=== PATIENT | female | born 1990 | race Caucasian/White ===

== ENCOUNTER 2020-06-19 14:35 | Outpatient (REF) | payer OTHER, SELFPAY ==
[2020-06-19 14:54] LABS: COVID-19 Test Negative (Negative)
== END 2020-06-19 14:36 | disposition home or self-care (01) ==
LOC: HO.EMPCOV 14:35
PROVIDERS: PCP Internal Medicine; Visit Provider Internal Medicine
DX: Z20.822 Contact with and (suspected) exposure to COVID-19 (principal)
CPT/HCPCS: 36415; 87635; C9803

== ENCOUNTER 2020-06-21 10:23 | Outpatient (REF) | payer OTHER, SELFPAY ==
[2020-06-21 10:53] LABS: COVID-19 Test Negative (Negative)
== END 2020-06-21 10:24 | disposition home or self-care (01) ==
LOC: HO.EMPCOV 10:23
PROVIDERS: Visit Provider Internal Medicine
DX: Z20.822 Contact with and (suspected) exposure to COVID-19 (principal)
CPT/HCPCS: 36415; 87635; C9803

== ENCOUNTER 2020-07-04 16:00 | Outpatient (REF) | payer OTHER, MEDICAID, SELFPAY | END 2020-07-04 16:01 | disposition home or self-care (01) | LOC: HO.LNP 16:00 | PROVIDERS: Visit Provider Internal Medicine | DX: J00 Acute nasopharyngitis [common cold] (principal) | CPT/HCPCS: 87071; 87880 ==

== ENCOUNTER 2021-02-05 15:07 | Outpatient (REF) | payer OTHER, MEDICAID, SELFPAY ==
[2021-02-06 09:24] LABS: CT PCR NOT DETECTED (Not Detect.); NG PCR NOT DETECTED (Not Detect.)
== END 2021-02-05 15:08 | disposition home or self-care (01) ==
LOC: HO.LAB 15:07
PROVIDERS: Visit Provider Advanced Practice Midwife
DX: Z01.419 Encounter for gynecological examination (general) (routine) without abnormal findings (principal); Z11.3 Encounter for screening for infections with a predominantly sexual mode of transmission; Z20.2 Contact with and (suspected) exposure to infections with a predominantly sexual mode of transmission; G43.009 Migraine without aura, not intractable, without status migrainosus
CPT/HCPCS: 87491; 87591

== ENCOUNTER → 2021-04-24 14:58 | Outpatient (BNVA) | payer OTHER, MEDICAID, SELFPAY | PROVIDERS: Visit Provider Advanced Practice Midwife ==

== ENCOUNTER 2021-08-09 12:22 | Emergency (ER) | payer OTHER, MEDICAID, SELFPAY ==
--- NOTE | ~2021-08-09 | US_ITS ---
EXAMINATION: US ABDOMEN LIMITED CLINICAL INFORMATION: Right upper quadrant, epigastric pain.. COMPARISON: CT abdomen 05/17/2014. Renal ultrasound 07/10/2017.. TECHNIQUE: Real-time imaging of the right upper quadrant abdominal viscera. FINDINGS: PANCREAS: Normal. LIVER: Normal. The liver is normal in size. The liver contour is normal. Parenchymal echogenicity is normal. No focal hepatic lesion. There is no intrahepatic biliary duct dilatation seen. GALLBLADDER: Normal. The gallbladder is physiologically distended without evidence of stones, sludge, polyps, wall thickening or pericholecystic fluid. COMMON BILE DUCT: Normal in caliber measuring 0.5 cm in diameter. RIGHT KIDNEY: Normal. Mild caliectasis/pelviectasis. No renal calculi or focal parenchymal lesions. The kidney measures 9.6 cm in maximum dimension. FREE FLUID: None. US/US abdomen limited IMPRESSION: No evidence of gallstones. No sonographic findings suggest acute cholecystitis. Minimal right renal caliectasis/pelviectasis. No calculi.
[2021-08-09 13:14] VITALS: BP 112/75; PULSE 79; RESP 18; TEMP 36.7; O2SAT 99; BMI 22.0
--- NOTE | 2021-08-09 13:42 | ED_ITS ---
HPI - Abdominal Pain General Chief Complaint: Abdominal Pain Stated Complaint: sharp abd pain Time Seen by Provider: 08/09/21 13:27 Source: patient Mode of arrival: ambulatory History of Present Illness HPI narrative: 31-year-old female with past medical history renal stones s/p hernia surgery, presenting to the ED complaining of worsening intermittent epigastric abdominal pain x a few days with associated nausea. Admits has been taking a lot of Motrin lately & pain started afterwards not sure if related to the Motrin. Denies fever, chills, vomiting, diarrhea, dysuria/hematuria MD elicited complaint: abdominal pain Pertinent past history: gastritis Onset (ago): day(s) Related Data Previous Rx's Medication Instructions Recorded norelgestromin 150 mcg-e.estradiol 1 patch TRANSDERMAL QWEEK 28 Days 02/05/21 35 mcg/24 hr weekly transderm patch #12 ea fluconazole 150 mg tablet 150 mg PO Q3D #2 tab 04/24/21 miconazole nitrate 2 % vaginal 1 appful VAGINAL BEDTIME 7 Days 04/24/21 cream (Miconazole-7) #45 g aluminum-mag hydroxide-simethicone 5 ml PO 5XD PRN #30 ml 08/09/21 200 mg-200 mg-20 mg/5 mL oral susp (Maalox Advanced) famotidine 20 mg tablet (Pepcid) 20 mg PO DAILY #14 tab 08/09/21 lidocaine HCl 2 % mucosal solution 5 ml MUCOUS MEMBRANE TID PRN #100 08/09/21 (Lidocaine Viscous) ml Allergies Allergy/AdvReac Type Severity Reaction Status Date / Time cat dander [CATS] Allergy Mild ITCHING Verified 08/09/21 13:18 codeine [CODEINE] AdvReac Unknown NAUSEA Verified 08/09/21 13:18 Codeine AdvReac Unknown nausea and Uncoded 08/09/21 13:18 vomiting Review of Systems Review of Systems Constitutional: No Fever, No Chills, No Fatigue, No Malaise ENT/Mouth: No Ear Pain, No sore throat, No Rhinorrhea, No Swallowing Difficulty Eyes: No Eye Pain, No Swelling, No Redness Cardiovascular: No Chest Pain, No SOB, No Palpitations Respiratory: No Cough, No Sputum, No Dyspnea Gastrointestinal: + Nausea, No Vomiting, No Diarrhea, No Constipation, + Abdominal pain, No Hematochezia, No Melena Genitourinary: No irregular bleeding, No Dysuria, No Urinary Frequency, No Hematuria, No Urinary Incontinence, No Urgency, No Flank Pain, No Urinary Flow Changes Musculoskeletal: No joint pain, No Myalgias, No Joint Swelling Skin: No Skin Lesions, No rash Neuro: No Weakness, No Numbness, No Dizziness, No Headache Yes all other systems are reviewed and are negative [facility] Past Medical History Attestation statement: The following information was validated with the patient. Medical History Adopted History of abnormal cervical Pap smear Kidney stone Migraine without aura No active medical problems Surgical History H/O LEEP History of hernia surgery Social History Social History Household Members: Children Housing: House Alcohol intake: current Patient Tobacco Use Status: Never used Tobacco Advance Directives: No Advance Directives Information Provided: No Patient : No Sexual orientation: Straight/Heterosexual Gender identity: Female Physical Exam ED Vital Signs: Vital Signs - 24 hr 08/09/21 13:14 08/09/21 15:08 Temperature 98.1 F 98.4 F Pulse Rate 79 68 Respiratory Rate 18 12 Blood Pressure 112/75 113/63 Pulse Oximetry 99 100 BMI result Body Mass Index 22.0 Const General: cooperative, healthy appearing and no acute distress Orientation/consciousness: patient oriented x3 Limitations: no limitations HENMT Head: Yes normal to inspection Ears: hearing grossly normal bilaterally General nose exam: Normal external nose present Face and sinus: Yes normal facial exam Eyes General: appearance normal, both eyes and all related structures EOM: EOMs intact bilaterally Neck Neck: Yes normal visual inspection and Yes no meningeal signs Resp Effort & Inspection: normal respiratory effort and no respiratory distress Auscultation: clear to auscultation bilaterally Cardio Rate: regular rate Heart sounds: S1 normal heart sound present and S2 normal heart sound present GI Inspection: Yes normal to inspection Palpation (GI): Soft to palpation, Tenderness to palpation present (GI) in the epigastrum and in the RUQ, no guarding and not rigid General: Yes no CVA tenderness Back/Spine/Pelvis Back: no CVA tenderness Skin Rashes: no rashes Wounds: no wounds Neuro General: patient oriented x3 and no meningeal signs Gait exam (Neuro): Normal gait present Extrem General: Yes normal to inspection Course Course Course Narrative: US abdomen limited IMPRESSION: No evidence of gallstones. No sonographic findings suggest acute cholecystitis. ? Minimal right renal caliectasis/pelviectasis. No calculi. -1444--mild leukocytosis of 11.4. Labs otherwise unremarkable. UA with RBCs, not infected > On re-evaluation pt reports sx improvement after medications. Plan to DC home with GI/PCP follow-up, Dr. Veronica in agreement with plan. Discussed worrisome signs and symptoms and strict return precautions. She verbalized understanding and feel safe for discharge home MDM - Abdominal Pain MDM Narrative Medical decision making narrative: 31-year-old female with past medical history renal stones s/p hernia surgery, presenting to the ED complaining of worsening intermittent epigastric abdominal pain x a few days with associated nausea. On exam vital signs stable, NAD, abdomen soft with epigastric/RUQ tenderness to palpation, no rebound or guarding, no CVA tenderness. Concern for gastritis/esophagitis vs pancreatitis vs cholecystitis/lithiasis. Unlikely renal stone/colic, UTI, appendicitis or diverticulitis Plan: Labs, UA, abdomen ultrasound, symptomatic treatment, re-evaluate Differential Diagnosis Differential diagnosis: Likely abdominal pain, gastritis and pancreatitis Medical Records Attestation: I reviewed the patient's medical records. Lab Data Attestation: I reviewed the patient's lab results. Result diagrams: 08/09/21 14:12 08/09/21 14:31 Labs: Lab Results 08/09/21 08/09/21 08/09/21 Range/Units 14:12 14:12 14:12 WBC 11.4 H (4.8-10.8) X10*3/uL RBC 4.22 (4.20-5.50) X10*6/uL Hgb 13.4 (12.0-16.0) g/dl Hct 40.0 (37.0-47.0) % MCV 94.8 (80.0-98.0) fL MCH 31.8 (27.0-33.0) pg MCHC 33.5 (31.0-35.0) g/dl RDW 13.2 (11.0-16.0) % Plt Count 421 H (160-400) X10*3/uL MPV 8.9 L (9.4-12.3) fL Immature Gran % (Auto) 0.4 (0.0-0.4) % Neut % (Auto) 69.8 (45-73) % Lymph % (Auto) 23.6 (20-40) % [place] % (Auto) 4.7 (2-11) % Eos % (Auto) 1.1 (0-4) % Baso % (Auto) 0.4 (0-2) % Lymph # (Auto) 2.7 (1.2-4.9) X10*3/uL [place] # (Auto) 0.5 (0.1-1.2) X10*3/uL Eos # (Auto) 0.1 (0.0-0.4) X10*3/uL Baso # (Auto) 0.0 (0.0-0.2) X10*3/uL Abs Immat Gran (auto) 0.04 H (0.00-0.03) X10*3/uL Absolute Neuts (auto) 8.0 (2.0-8.3) x10*3/uL Absolute Nucleated RBC 0.000 (0.0-0.012) X10*3/uL Nucleated RBC % (auto) 0.0 (0.0-0.2) /100WBC Sodium (135-145) mmol/L Potassium (3.3-5.1) mmol/L Chloride (96-108) mmol/L Carbon Dioxide (22-29) mmol/L Anion Gap (12-20) BUN (9-16) mg/dL Creatinine (0.5-1.4) mg/dL Estim Creat Clear Calc Estimated GFR Random Glucose (60-115) mg/dL Calcium (8.4-10.2) mg/dL Magnesium (1.6-2.6) mg/dL Total Bilirubin (0.0-1.0) mg/dL Direct Bilirubin (0.0-0.5) mg/dL AST (5-31) U/L ALT (0-31) U/L Alkaline Phosphatase (39-117) U/L Total Protein (6.5-8.0) g/dL Albumin (3.5-5.0) g/dL Lipase (8-78) U/L Urine Color YELLOW Urine Appearance CLEAR Urine pH 5.5 (5.0-8.0) Ur Specific [place] >= 1.030 H (1.005-1.025) Urine Protein NEG (NEG-TRACE) MG/DL Urine Glucose (UA) NEG (NEG) MG/DL Urine Ketones NEG (NEG) MG/DL Urine Blood 2+ H (NEG) Urine Nitrite NEG (NEG) Ur Leukocyte Esterase NEG (NEG) Urine RBC 5-9 H (0) /HPF Urine WBC 0-2 (0-4) /HPF Ur Squamous Epith Cells 1+ /LPF Urine Bacteria TRACE /LPF Urine Mucus 1+ /LPF Urine Test NEGATIVE (NEGATIVE) 08/09/21 Range/Units 14:31 WBC (4.8-10.8) X10*3/uL RBC (4.20-5.50) X10*6/uL Hgb (12.0-16.0) g/dl Hct (37.0-47.0) % MCV (80.0-98.0) fL MCH (27.0-33.0) pg MCHC (31.0-35.0) g/dl RDW (11.0-16.0) % Plt Count (160-400) X10*3/uL MPV (9.4-12.3) fL Immature Gran % (Auto) (0.0-0.4) % Neut % (Auto) (45-73) % Lymph % (Auto) (20-40) % [place] % (Auto) (2-11) % Eos % (Auto) (0-4) % Baso % (Auto) (0-2) % Lymph # (Auto) (1.2-4.9) X10*3/uL [place] # (Auto) (0.1-1.2) X10*3/uL Eos # (Auto) (0.0-0.4) X10*3/uL Baso # (Auto) (0.0-0.2) X10*3/uL Abs Immat Gran (auto) (0.00-0.03) X10*3/uL Absolute Neuts (auto) (2.0-8.3) x10*3/uL Absolute Nucleated RBC (0.0-0.012) X10*3/uL Nucleated RBC % (auto) (0.0-0.2) /100WBC Sodium 139 (135-145) mmol/L Potassium 3.9 (3.3-5.1) mmol/L Chloride 107 (96-108) mmol/L Carbon Dioxide 24 (22-29) mmol/L Anion Gap 12 (12-20) BUN 9 (9-16) mg/dL Creatinine 0.72 (0.5-1.4) mg/dL Estim Creat Clear Calc 68.3 Estimated GFR > 60 Random Glucose 87 (60-115) mg/dL Calcium 9.9 (8.4-10.2) mg/dL Magnesium 2.0 (1.6-2.6) mg/dL Total Bilirubin 0.3 (0.0-1.0) mg/dL Direct Bilirubin 0.2 (0.0-0.5) mg/dL AST 16 (5-31) U/L ALT 9 (0-31) U/L Alkaline Phosphatase 44 (39-117) U/L Total Protein 7.3 (6.5-8.0) g/dL Albumin 4.1 (3.5-5.0) g/dL Lipase 26 (8-78) U/L Urine Color Urine Appearance Urine pH (5.0-8.0) Ur Specific [place] (1.005-1.025) Urine Protein (NEG-TRACE) MG/DL Urine Glucose (UA) (NEG) MG/DL Urine Ketones (NEG) MG/DL Urine Blood (NEG) Urine Nitrite (NEG) Ur Leukocyte Esterase (NEG) Urine RBC (0) /HPF Urine WBC (0-4) /HPF Ur Squamous Epith Cells /LPF Urine Bacteria /LPF Urine Mucus /LPF Urine Test (NEGATIVE) Discharge Plan Discharge Clinical Impression: Abdominal pain Qualifiers: Abdominal location: epigastric Qualified Code(s): R10.13 - Epigastric pain Patient Disposition: Home, Self-Care Instructions: Abdominal Pain (ED) Additional Instructions: Your blood work and ultrasound were reassuring today in the ED Please follow-up with her doctor and search analyst. Call to make an appointment Pepcid and Maalox will help with acid reduction. Viscous lidocaine will help numb the pain you are having These avoid spicy food, sweets, caffeine, and chocolate as will exacerbate her symptoms If her symptoms persist or worsen, pain becomes unbearable, you are vomiting blood, having bloody or black stool, are unable to eat or drink please return to the ED Prescriptions: New famotidine [Pepcid] 20 mg tablet 20 mg PO DAILY Qty: 14 0RF alum-mag hydroxide-simeth [Maalox Advanced] 200-200-20 mg/5 mL suspension 5 ml PO 5XD PRN (Reason: dyspepsia) Qty: 30 0RF Rx Instructions: administer between meals and at bedtime lidocaine HCl [Lidocaine Viscous] 2 % solution 5 ml mucous membrane TID PRN (Reason: pain) Qty: 100 0RF No Action norelgestromin-ethin.estradiol 150-35 mcg/24 hr patch weekly 1 patch transdermal QWEEK 28 Days Qty: 12 4RF Rx Instructions: apply once weekly, will use on a continuous cycle, no placebo week off fluconazole 150 mg tablet 150 mg PO Q3D Qty: 2 3RF Rx Instructions: may repeat second dose 72 hrs after first dose if symptoms persist miconazole nitrate [Miconazole-7] 2 % cream 1 appful vaginal BEDTIME 7 Days Qty: 45 3RF Referrals: Abundio Worthington [Physician] - 1 week Dionicio Vance MD [Primary Care Provider] - 2 days
[2021-08-09 14:19] LABS: MANUAL DIFF FLAG NO
[2021-08-09 14:21] LABS: Appearance Urine CLEAR; Color Urine YELLOW; Glucose Urine UA NEG (NEG); Leukocyte Esterase Urine NEG (NEG); Nitrite Urine NEG (NEG); PH 5.5 (5.0-8.0); Specific Gravity - Urine >= 1.030 (1.005-1.025); UACC Culture Trigger NO; Urine Blood 2+ (NEG); Urine Ketones NEG (NEG); Urine Protein NEG (NEG-TRACE)
[2021-08-09] MEDS: Famotidine/PF 20 MG/2 ML VIAL IVPUSH (14:22)
[2021-08-09] MEDS: Lidocaine HCl Viscous 2 % 15 ML SOLUTION MUCOUS MEM (14:22)
[2021-08-09] MEDS: Magnesium Hydrox/Alum Hydrox 30 ML ORAL.SUSP PO (14:22)
[2021-08-09] MEDS: ondansetron HCL 4 MG/2 ML VIAL IVPUSH (14:22)
[2021-08-09] MEDS: 0.9 % Sodium Chloride 1,000 ML 999 ML IV (14:22)
[2021-08-09 14:23] LABS: UPreg QC Valid YES; Urine Pregnancy NEGATIVE (NEGATIVE)
[2021-08-09 14:26] LABS: Basophils Percent Auto 0.4 % (0-2); Eosinophils Absolute Auto 0.1 X10*3/uL (0.0-0.4); Eosinophils Percent Auto 1.1 % (0-4); Hemoglobin 13.4 g/dl (12.0-16.0); Imm Gran Abs Auto 0.04 X10*3/uL (0.00-0.03); Imm Gran Pct Auto 0.4 % (0.0-0.4); Lymphocytes Absolute Auto 2.7 X10*3/uL (1.2-4.9); Lymphocytes Percent Auto 23.6 % (20-40); Mean Corpuscular HGB Conc 33.5 g/dl (31.0-35.0); Mean Corpuscular Hemoglobin 31.8 pg (27.0-33.0); Mean Corpuscular Volume 94.8 fL (80.0-98.0); Mean Platelet Volume 8.9 fL (9.4-12.3); Monocytes Absolute Auto 0.5 X10*3/uL (0.1-1.2); Monocytes Percent Auto 4.7 % (2-11); Neutrophils Percent Auto 69.8 % (45-73); Platelet Count 421 X10*3/uL (160-400); Red Blood Count 4.22 X10*6/uL (4.20-5.50); Red Cell Distribution Width 13.2 % (11.0-16.0); White Blood Count 11.4 X10*3/uL (4.8-10.8)
[2021-08-09 14:29] LABS: WBC Urine 0-2 /HPF (0-4)
[2021-08-09 14:30] LABS: Bacteria Urine TRACE /LPF; Mucus Urine 1+ /LPF; Squamous Epithelial Cell Urine 1+ /LPF
[2021-08-09 14:52] LABS: Alanine Aminotransferase 9 U/L (0-31); Albumin Level 4.1 g/dL (3.5-5.0); Alkaline Phosphatase 44 U/L (39-117); Anion Gap 12 (12-20); Aspartate Amino Transferase 16 U/L (5-31); Bilirubin Direct 0.2 mg/dL (0.0-0.5); Bilirubin Total 0.3 mg/dL (0.0-1.0); Blood Urea Nitrogen 9 mg/dL (9-16); Calcium 9.9 mg/dL (8.4-10.2); Carbon Dioxide 24 mmol/L (22-29); Chloride 107 mmol/L (96-108); Creatinine Clr Calc Pharmacy 68.3; Estimated Glomerular Filt Rate > 60; Glucose Random 87 mg/dL (60-115); Lipase 26 U/L (8-78); Potassium 3.9 mmol/L (3.3-5.1); Sodium 139 mmol/L (135-145); Total Protein 7.3 g/dL (6.5-8.0)
[2021-08-09 15:08] VITALS: BP 113/63; PULSE 68; RESP 12; TEMP 36.9; O2SAT 100
== END 2021-08-09 15:58 | disposition home or self-care (01) ==
PROVIDERS: Physician Assistant; Emergency Provider Emergency Medicine; PCP Internal Medicine
DX: K29.70 Gastritis, unspecified, without bleeding (principal); R10.13 Epigastric pain; Z79.899 Other long term (current) drug therapy
CPT/HCPCS: 36415; 76705; 80048; 80076; 81001; 81025; 83690; 83735; 85025; 96360; 96361; 99283; 99284; J2405

== ENCOUNTER 2022-02-25 16:21 | Outpatient (REF) | payer OTHER, SELFPAY ==
[2022-02-26 15:24] LABS: CT PCR NOT DETECTED (Not Detect.); NG PCR NOT DETECTED (Not Detect.)
== END 2022-02-25 16:22 | disposition home or self-care (01) ==
LOC: HO.LNP 16:21
PROVIDERS: Visit Provider Advanced Practice Midwife
DX: Z11.3 Encounter for screening for infections with a predominantly sexual mode of transmission (principal)
CPT/HCPCS: 87491; 87591

== ENCOUNTER 2022-04-09 11:32 | Outpatient (REF) | payer OTHER, SELFPAY ==
[2022-04-09 13:39] LABS: MANUAL DIFF FLAG NO
[2022-04-09 13:43] LABS: Basophils Percent Auto 0.4 % (0-2); Eosinophils Absolute Auto 0.1 X10*3/uL (0.0-0.4); Eosinophils Percent Auto 1.4 % (0-4); Hematocrit 39.9 % (37.0-47.0); Hemoglobin 13.1 g/dl (12.0-16.0); Imm Gran Abs Auto 0.02 X10*3/uL (0.00-0.03); Imm Gran Pct Auto 0.3 % (0.0-0.4); Lymphocytes Absolute Auto 2.1 X10*3/uL (1.2-4.9); Lymphocytes Percent Auto 27.6 % (20-40); Mean Corpuscular HGB Conc 32.8 g/dl (31.0-35.0); Mean Corpuscular Volume 94.3 fL (80.0-98.0); Mean Platelet Volume 9.5 fL (9.4-12.3); Monocytes Absolute Auto 0.3 X10*3/uL (0.1-1.2); Monocytes Percent Auto 4.4 % (2-11); Neutrophils Absolute Auto 5.1 x10*3/uL (2.0-8.3); Neutrophils Percent Auto 65.9 % (45-73); Platelet Count 421 X10*3/uL (160-400); Red Blood Count 4.23 X10*6/uL (4.20-5.50); Red Cell Distribution Width 13.1 % (11.0-16.0); White Blood Count 7.7 X10*3/uL (4.8-10.8)
[2022-04-09 14:01] LABS: Alanine Aminotransferase 11 U/L (0-31); Albumin Level 4.4 g/dL (3.5-5.0); Alkaline Phosphatase 49 U/L (39-117); Anion Gap 17 (12-20); Aspartate Amino Transferase 17 U/L (5-31); Bilirubin Total 0.5 mg/dL (0.0-1.0); Blood Urea Nitrogen 11 mg/dL (9-16); C Reactive Protein 1.22 mg/dL (< or = 0.50); Calcium 9.4 mg/dL (8.4-10.2); Carbon Dioxide 22 mmol/L (22-29); Chloride 104 mmol/L (96-108); Estimated Glomerular Filt Rate > 60; Glucose Random 76 mg/dL (60-115); Potassium 4.2 mmol/L (3.3-5.1); Sodium 139 mmol/L (135-145); Total Protein 7.7 g/dL (6.5-8.0)
[2022-04-09 14:34] LABS: Syphilis Screen Nonreactive (Nonreactive)
[2022-04-09 15:39] LABS: CT PCR NOT DETECTED (Not Detect.); NG PCR NOT DETECTED (Not Detect.)
[2022-04-12 23:10] LABS: Lyme Blot 1.66 index
[2022-04-14 08:44] LABS: Lyme Abs Screen POSITIVE
[2022-04-14 08:48] LABS: 18 KD (IgG) Band NON-REACTIVE; 23 KD (IgG) Band NON-REACTIVE; 23 KD (IgM) Band REACTIVE; 28 KD (IgG) Band NON-REACTIVE; 30 KD (IgG) Band NON-REACTIVE; 39 KD (IgM) Band NON-REACTIVE; 39KD (IgG) Band NON-REACTIVE; 41 KD (IgM) Band NON-REACTIVE; 41KD (IgG) Band NON-REACTIVE; 45 KD (IgG) Band NON-REACTIVE; 58 KD (IgG) Band NON-REACTIVE; 66 KD (IgG) Band NON-REACTIVE; 93 KD (IgG) Band NON-REACTIVE; Lyme IgG Blot Interp NEGATIVE (NEGATIVE); Lyme IgM Blot Interp NEGATIVE (NEGATIVE)
== END 2022-04-09 11:33 | disposition home or self-care (01) ==
LOC: HO.10HDL 11:32
PROVIDERS: Visit Provider Internal Medicine
DX: Z11.3 Encounter for screening for infections with a predominantly sexual mode of transmission (principal); R21 Rash and other nonspecific skin eruption
CPT/HCPCS: 80053; 85025; 86140; 86617; 86618; 86780; 87491; 87591

== ENCOUNTER 2022-05-05 09:18 | Outpatient (REF) | payer OTHER, SELFPAY ==
[2022-05-05 11:06] LABS: C Reactive Protein 0.75 mg/dL (< or = 0.50)
[2022-05-07 06:04] LABS: Lyme Blot 1.61 index
[2022-05-10 08:26] LABS: Lyme Abs Screen POSITIVE
[2022-05-10 08:31] LABS: 18 KD (IgG) Band NON-REACTIVE; 23 KD (IgG) Band NON-REACTIVE; 23 KD (IgM) Band REACTIVE; 28 KD (IgG) Band NON-REACTIVE; 30 KD (IgG) Band NON-REACTIVE; 39 KD (IgM) Band NON-REACTIVE; 39KD (IgG) Band NON-REACTIVE; 41 KD (IgM) Band NON-REACTIVE; 41KD (IgG) Band REACTIVE; 45 KD (IgG) Band NON-REACTIVE; 58 KD (IgG) Band NON-REACTIVE; 66 KD (IgG) Band NON-REACTIVE; 93 KD (IgG) Band NON-REACTIVE; Lyme IgG Blot Interp NEGATIVE (NEGATIVE); Lyme IgM Blot Interp NEGATIVE (NEGATIVE)
== END 2022-05-05 09:19 | disposition home or self-care (01) ==
LOC: HO.10HDL 09:18
PROVIDERS: Visit Provider Internal Medicine
DX: T14.8XXA Other injury of unspecified body region, initial encounter (principal); W57.XXXA Bitten or stung by nonvenomous insect and other nonvenomous arthropods, initial encounter
CPT/HCPCS: 36415; 86140; 86617; 86618

== ENCOUNTER 2022-05-18 12:15 | Outpatient (REF) | payer OTHER, SELFPAY ==
[2022-05-18 14:28] LABS: MANUAL DIFF FLAG NO
[2022-05-18 14:35] LABS: Basophils Absolute Auto 0.1 X10*3/uL (0.0-0.2); Basophils Percent Auto 0.5 % (0-2); Eosinophils Absolute Auto 0.2 X10*3/uL (0.0-0.4); Eosinophils Percent Auto 2.4 % (0-4); Hematocrit 39.3 % (37.0-47.0); Hemoglobin 12.9 g/dl (12.0-16.0); Imm Gran Abs Auto 0.03 X10*3/uL (0.00-0.03); Imm Gran Pct Auto 0.3 % (0.0-0.4); Lymphocytes Absolute Auto 2.5 X10*3/uL (1.2-4.9); Lymphocytes Percent Auto 24.2 % (20-40); Mean Corpuscular HGB Conc 32.8 g/dl (31.0-35.0); Mean Corpuscular Hemoglobin 30.9 pg (27.0-33.0); Mean Platelet Volume 9.3 fL (9.4-12.3); Monocytes Absolute Auto 0.5 X10*3/uL (0.1-1.2); Monocytes Percent Auto 4.4 % (2-11); Neutrophils Percent Auto 68.2 % (45-73); Platelet Count 446 X10*3/uL (160-400); Red Blood Count 4.18 X10*6/uL (4.20-5.50); White Blood Count 10.2 X10*3/uL (4.8-10.8)
[2022-05-18 15:31] LABS: Folate 13.3 ng/mL (> or = 4.0); Vitamin B12 223 pg/mL (200-900)
[2022-05-18 16:16] LABS: Alanine Aminotransferase 10 U/L (0-31); Albumin Level 4.2 g/dL (3.5-5.0); Alkaline Phosphatase 49 U/L (39-117); Anion Gap 14 (12-20); Aspartate Amino Transferase 15 U/L (5-31); Bilirubin Total 0.2 mg/dL (0.0-1.0); Blood Urea Nitrogen 12 mg/dL (9-16); C Reactive Protein 0.92 mg/dL (< or = 0.50); Calcium 9.5 mg/dL (8.4-10.2); Carbon Dioxide 21 mmol/L (22-29); Chloride 108 mmol/L (96-108); Estimated Glomerular Filt Rate > 60; Free T4 (Free Thyroxine) 0.94 ng/dL (0.71-1.85); Glucose Random 82 mg/dL (60-115); Potassium 4.2 mmol/L (3.3-5.1); Rheumatoid Factor < 13.0 IU/mL (<15.0); Sodium 139 mmol/L (135-145); Thyroid Stimulating Hormone 0.61 uIU/mL (0.32-4.0); Total Protein 7.4 g/dL (6.5-8.0)
[2022-05-21 12:49] LABS: Anti Nuclear Antibody Screen NEGATIVE (NEGATIVE)
== END 2022-05-18 12:16 | disposition home or self-care (01) ==
LOC: HO.10HDL 12:15
PROVIDERS: Visit Provider Internal Medicine
DX: M79.10 Myalgia, unspecified site (principal); A69.20 Lyme disease, unspecified; R53.83 Other fatigue
CPT/HCPCS: 36415; 80053; 82550; 82607; 82746; 84439; 84443; 85025; 86038; 86039; 86140; 86431

== ENCOUNTER 2022-08-04 14:26 | Outpatient (REF) | payer OTHER, SELFPAY ==
--- NOTE | ~2022-08-04 | XR_ITS ---
EXAMINATION: XR SINUSES CLINICAL INFORMATION: Sinus pressure and headaches. COMPARISON: None TECHNIQUE: 3 views of the sinuses were obtained. FINDINGS: The paranasal sinuses are well-aerated and clear without air-fluid levels. The bony sinus lemus are intact. The mastoid air cells are well-aerated. XR/XR sinus min 3V IMPRESSION: Unremarkable sinus exam.
[2022-08-04 14:41] LABS: MANUAL DIFF FLAG NO
[2022-08-04 14:58] LABS: Basophils Percent Auto 0.4 % (0-2); Eosinophils Absolute Auto 0.2 X10*3/uL (0.0-0.4); Eosinophils Percent Auto 1.8 % (0-4); Hematocrit 40.4 % (37.0-47.0); Hemoglobin 13.2 g/dl (12.0-16.0); Imm Gran Abs Auto 0.04 X10*3/uL (0.00-0.03); Imm Gran Pct Auto 0.4 % (0.0-0.4); Lymphocytes Absolute Auto 2.7 X10*3/uL (1.2-4.9); Lymphocytes Percent Auto 23.6 % (20-40); Mean Corpuscular HGB Conc 32.7 g/dl (31.0-35.0); Mean Corpuscular Hemoglobin 30.7 pg (27.0-33.0); Mean Platelet Volume 8.6 fL (9.4-12.3); Monocytes Absolute Auto 0.6 X10*3/uL (0.1-1.2); Monocytes Percent Auto 5.5 % (2-11); Neutrophils Absolute Auto 7.8 x10*3/uL (2.0-8.3); Neutrophils Percent Auto 68.3 % (45-73); Platelet Count 415 X10*3/uL (160-400); Red Cell Distribution Width 13.2 % (11.0-16.0); White Blood Count 11.4 X10*3/uL (4.8-10.8)
[2022-08-04 15:52] LABS: Monotest Negative (Negative)
[2022-08-04 16:37] LABS: Alanine Aminotransferase 9 U/L (0-31); Albumin Level 4.2 g/dL (3.5-5.0); Alkaline Phosphatase 59 U/L (39-117); Anion Gap 12 (12-20); Aspartate Amino Transferase 16 U/L (5-31); Bilirubin Total 0.4 mg/dL (0.0-1.0); Blood Urea Nitrogen 12 mg/dL (9-16); C Reactive Protein 1.07 mg/dL (< or = 0.50); Calcium 9.3 mg/dL (8.4-10.2); Carbon Dioxide 25 mmol/L (22-29); Chloride 107 mmol/L (96-108); Estimated Glomerular Filt Rate > 60; Glucose Random 82 mg/dL (60-115); Potassium 4.3 mmol/L (3.3-5.1); Sodium 140 mmol/L (135-145); Total Protein 7.5 g/dL (6.5-8.0)
[2022-08-05 13:18] LABS: Thyroid Peroxidase Antibodies 1 IU/mL (<9)
== END 2022-08-04 14:27 | disposition home or self-care (01) ==
LOC: HO.XRAY 14:26
PROVIDERS: PCP Internal Medicine; Visit Provider Internal Medicine
DX: J34.89 Other specified disorders of nose and nasal sinuses (principal); R51.9 Headache, unspecified
CPT/HCPCS: 36415; 70220; 80053; 85025; 86140; 86308; 86376

== ENCOUNTER 2023-03-19 09:26 | Outpatient (AMB) | payer OTHER, MEDICAID, SELFPAY ==
--- NOTE | 2023-03-19 10:50 | AM.OFFWIN_ITS ---
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 Patient Tobacco Use Status: Never used Tobacco Allergies cat dander [CATS] Allergy (Mild, Verified 03/19/23 10:53) ITCHING codeine [CODEINE] Adverse Reaction (Unknown, Verified 03/19/23 10:53) NAUSEA Codeine Adverse Reaction (Unknown, Uncoded 03/19/23 10:53) nausea and vomiting Do you need a note to return to daycare/school/sports/work: No HPI HPI Comments History of Present Illness Details This is a 33-year-old female who presents to the office today for sick visit. Patient complaining of left-sided neck pain radiating into her left shoulder x6 days. Patient states she believe she slept wrong and that woke up with left-sided neck stiffness/pain radiating into her left shoulder. She has mild numbness/achiness of the left forearm. She denies any weakness of the hand. 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 Sexual orientation: Straight/Heterosexual Gender identity: Female Female Reproductive History Menstrual Age of Menarche: 11 Review of Systems Const All systems reviewed & are unremarkable except as noted in HPI and below Reports no additional complaints Eyes Reports no additional complaints ENT Reports no additional complaints Card Reports no additional complaints Resp Reports no additional complaints GI Reports no additional complaints Reports no additional complaints Musc Reports no additional complaints Skin/Breast Reports system reviewed and no additional complaints, except as documented Neuro Reports no additional complaints Psych Reports no additional complaints Endo Reports no additional complaints Toby/Lymph Reports no additional complaints Aller/Immun Reports no additional complaints Physical Exam Vital Signs: Last Vital Signs Pulse 72 03/19/23 10:54 BP 110/70 03/19/23 10:54 Pulse Ox 99 03/19/23 10:54 Oxygen Delivery Method Room Air 03/19/23 10:54 BMI result Body Mass Index 22.1 Const Other: Vital signs reviewed. Constitutional: Non-toxic appearing. No acute distress. Well-developed and well-nourished. HEENT: Normocephalic and atraumatic. Skin: Warm and dry. No rashes or lesions noted. Neck: Decreased range of motion of the neck with lateral rotation to the left and right. Tenderness to palpation of the left cervical paraspinal musculature with palpable muscle spasms of the left cervical paraspinal musculature and left trapezius muscle. No meningeal signs. Cardio: Regular rate. No lower extremity edema. No JVD. Pulmonary: No respiratory distress. No accessory muscle usage. Gastrointestinal: Soft, nontender, and nondistended in all 4 quadrants. Musculoskeletal: Normal range of motion in joints throughout the body other than the C-spine (see above) No deformity or other signs of injury. Neuro: Alert and oriented x4. Cranial nerves 2-12 grossly intact. No focal deficits appreciated. Psych: Normal mood and affect. Assessment & Plan Assessment & Plan (1) Cervical paraspinal muscle spasm: Code(s): M62.838 - Other muscle spasm Plan: This is a 33-year-old female presenting to the office complaining of left-sided neck pain/stiffness radiating into her left shoulder after sleeping wrong. On physical examination, patient has tenderness to palpation and palpable muscle spasm of the left cervical paraspinal musculature and left trapezius muscle. History and physical most consistent with a cervical paraspinal muscle spasm, no concern for meningitis given no meningeal signs, low suspicion for cervical radiculopathy. Offered the patient an x-ray of the cervical spine though I do not think it is a bony abnormality and patient declined at this time. Recommended symptomatic management including rest/activity modification, 5% lidocaine patches, heat to the area, PO ibuprofen 800mg three times daily, and PO cyclobenzaprine 10mg three times daily as needed for muscle spasms. Patient verbalized understanding and is agreeable with the plan. Medications: New cyclobenzaprine 10 mg PO TID PRN 30 tabs 0RF muscle spasm lidocaine 5% leave on most painful area for up to 12 hrs 1 patch topical DAILY 30 ea 0RF Coding Level of Care Code New Pt Level 3 (26917) Diagnoses Cervical paraspinal muscle spasm M62.838
[2023-03-19 10:54] VITALS: BP 110/70; PULSE 72; O2SAT 99; BMI 22.1
== END 2023-03-19 11:22 | disposition home or self-care (01) ==
PROVIDERS: PCP Internal Medicine; Visit Provider Physician Assistant Medical
DX: M62.838 Other muscle spasm (principal)
CPT/HCPCS: 99051; 99203

== ENCOUNTER 2023-11-17 14:29 | Outpatient (REF) | payer OTHER, SELFPAY ==
[2023-11-18 10:36] LABS: Bacterial Vaginosis PCR POSITIVE (Negative); Candida Group PCR NOT DETECTED (Not Detect); Candida glab krusei PCR NOT DETECTED (Not Detect); Trichomonas vaginalis PCR NOT DETECTED (Not Detect)
[2023-11-23 20:44] LABS: HPV mRNA E6/E7 rflx Not Detected (Not Detected)
== END 2023-11-17 14:30 | disposition home or self-care (01) ==
LOC: HO.LNP 14:29
PROVIDERS: PCP Internal Medicine; Visit Provider Advanced Practice Midwife
DX: Z12.4 Encounter for screening for malignant neoplasm of cervix (principal); N89.8 Other specified noninflammatory disorders of vagina
CPT/HCPCS: 0352U; 87624; 88142

== ENCOUNTER 2023-11-17 14:29 | Outpatient (AMB) | payer OTHER, SELFPAY ==
[2023-11-17 14:31] VITALS: BP 106/62; BMI 22.5
--- NOTE | 2023-11-17 14:31 | MHC.OFFVIS ---
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 Doing well with concerns: Increased discharge, not itching or irritated. Pelvic pressure noted at times. She tries to eat healthy and stays active with exercise. Regular monthly menses. Currently is not sexually active. STI screening offered; she declines. Adopted unknown family history. Last pap smear 2020, negative. History of LEEP. 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 Sexual orientation: Straight/Heterosexual Gender identity: Female Female Reproductive History Menstrual Age of Menarche: 11 Duration of menses: 3-5 days Date of last menstrual period: 10/30/23 control method: none Total pregnancies: 3 Full term: 2 Number of Living Children: 2 Ab spontaneous: 1 Date of last pap smear: 02/01/20 (negative) History of abnormal pap smear: Yes (2015 2014 2008 CIN1, 2014 2013 2010 ASCUS, 2011 CIN3) Review of Systems Const All systems reviewed & are unremarkable except as noted in HPI and below Reports as per HPI Eyes Reports no additional complaints ENT Reports no additional complaints Card Reports no additional complaints Resp Reports no additional complaints GI Reports as per HPI and Reports no additional complaints Reports as per HPI Musc Reports no additional complaints Skin/Breast Reports as per HPI Neuro Reports no additional complaints Psych Reports no additional complaints Endo Reports no additional complaints Toby/Lymph Reports no additional complaints Aller/Immun Reports no additional complaints Physical Exam Vital Signs: Last Vital Signs BP 106/62 11/17/23 14:31 BMI result Body Mass Index 22.5 Const General: cooperative, healthy appearing, no acute distress, well developed and alert Orientation/consciousness: patient oriented x3 HEENT Head: Yes normal to inspection Eyes General: appearance normal, both eyes and all related structures Neck Neck: Yes normal visual inspection Thyroid: Thyroid normal Chest Chest palpation & inspection: normal inspection of the chest and other (no puckering, dimpling, peau de orange, retraction, discharge, masses) Breast/axilla inspection: normal inspection of the breasts Breast/axilla palpation: normal palpation of the breasts Resp Effort & Inspection: normal respiratory effort GI Inspection: Yes normal to inspection Palpation (GI): Soft to palpation Rectal Exam - Female: deferred General: Yes bladder normal to palpation External Female Exam: normal external appearance and normal appearance of the urethra Speculum Exam - Vagina: normal appearance of the vagina, normal palpation and normal vaginal discharge Speculum Exam - Cervix: normal appearance of the cervix, normal palpation and Other cervical findings present (Post LEEP appearance, vascular cluster at 07:00 o'clock, bled briskly) Bimanual exam- vagina & uterus: normal bimanual exam, normal palpation, uterine size normal, bladder normal to palpation, normal palpation, enlarged and other (Irregular contour) Bimanual Exam- Adnexa, other: tender and Adnexal mass present (Fullness on the right side, slightly tender) Skin General skin exam: no rashes or lesions noted Rashes: no rashes Neuro General: patient oriented x3 Cognition (Neuro): normal cognition Extrem General: Yes normal to inspection Psych Attitude: cooperative Thought process: Normal thought process present Assessment & Plan Assessment & Plan (1) Encounter for well woman exam with routine gynecological exam: Code(s): Z01.419 - Encounter for gynecological examination (general) (routine) without abnormal findings Category: Medical (2) Pelvic pressure in female: Code(s): R10.2 - Pelvic and perineal pain Category: Medical (3) Abnormal cervix finding: Code(s): N88.9 - Noninflammatory disorder of cervix uteri, unspecified Category: Medical Plan Discussed: Current recommendations for pap smears per ASCCP guidelines. Breast awareness and periodic breast exams. Maintain a healthy lifestyle including a well balanced diet and routine exercise. Use condoms for STI and prevention. Cervical lesion with vascular appearance, Pap smear obtained, BV panel. Declined GC chlamydia as she has not been sexually active since her last screening. Plan pelvic ultrasound to assess and follow up in person to discuss results, once Pap and ultrasound findings are back plan additional consultation with Dr. Alvarado to evaluate her cervical exam. Patient verbalizes understanding and agrees to the plan of care. She was given opportunity to ask questions and all questions were answered to the best of my ability. 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 This note is constructed using voice recognition software. While every effort has been made to ensure accuracy, lithographic press feeder errors may have been included. Orders: Orders Bacterial Vaginosis Panel Today N89.8 - Other specified noninflammatory disorders of vagina US pelvic and transvaginal Today N88.9 - Noninflammatory disorder of cervix uteri, unspecified, R10.2 - Pelvic and perineal pain Pap Smear Today Z12.4 - Encounter for screening for malignant neoplasm of cervix Coding Level of Care Code Est Pt Prev Care 18-39y(82940) Diagnoses Encounter for well woman exam with routine gynecological exam Z01.419 Pelvic pressure in female R10.2 Abnormal cervix finding N88.9
== END 2023-11-18 07:04 | disposition home or self-care (01) ==
LOC: HO.HWS 14:29
PROVIDERS: PCP Internal Medicine; Visit Provider Advanced Practice Midwife
DX: Z01.419 Encounter for gynecological examination (general) (routine) without abnormal findings (principal); R10.2 Pelvic and perineal pain; N88.9 Noninflammatory disorder of cervix uteri, unspecified
CPT/HCPCS: 99395

== ENCOUNTER 2023-11-24 16:31 | Outpatient (REF) | payer OTHER, SELFPAY ==
--- NOTE | ~2023-11-24 | US_ITS ---
EXAMINATION: US PELVIS CLINICAL INFORMATION: Pelvic and perineal pain, last menstrual period November 23, 2023. Right lower quadrant pain. COMPARISON: 02/07/2020 TECHNIQUE: Transabdominal ultrasound images of the pelvis. FINDINGS: The uterus is anteverted and measures 8.1 x 4.5 x 5.4 cm. Endometrial thickness is 12 mm. Endometrium appears echogenic. Patient declined transvaginal ultrasound imaging. Limited visualization due to bowel gas. Right ovary measures 2.6 x 1.4 x 1.4 cm, volume 2.7 mL. Left ovary measures 2.2 x 1.7 x 1.2 cm, volume 2.4 mL. Bilateral ovaries are grossly unremarkable, however, visualization is limited due to bowel gas. US/US pelvic complete IMPRESSION: 1. Endometrial thickness is 12 mm. Endometrium appears echogenic. 2. Bilateral ovaries are grossly unremarkable, however, visualization is limited due to bowel gas. 3. Patient declined transvaginal ultrasound imaging. Limited visualization due to bowel gas. Transvaginal ultrasound images advised if patient agrees.
== END 2023-11-24 16:32 | disposition home or self-care (01) ==
LOC: HO.US 16:31
PROVIDERS: PCP Internal Medicine; Visit Provider Advanced Practice Midwife
DX: R10.2 Pelvic and perineal pain (principal); N88.9 Noninflammatory disorder of cervix uteri, unspecified
CPT/HCPCS: 76856

== ENCOUNTER 2024-01-13 15:48 | Outpatient (AMB) | payer OTHER, SELFPAY ==
--- NOTE | 2024-01-13 15:53 | MHC.OFFVIS ---
Vital Signs 01/13/24 15:56 Height 4 ft 9 in Weight 104 lb BMI 22.5 BP 100/60 Intake Visit Reasons: Ultra sound follow up/pap only Intake Note: pt has period will r/s repeat pap Art Educator: Art Educator Present (Michelle) Allergies cat dander [CATS] Allergy (Mild, Verified 01/13/24 15:54) ITCHING codeine [CODEINE] Adverse Reaction (Unknown, Verified 01/13/24 15:54) NAUSEA Codeine Adverse Reaction (Unknown, Uncoded 11/17/23 14:34) nausea and vomiting Is last menstrual period known: Yes Last menstrual period: 01/12/24 HPI Comments Details: Patient is here today to discuss her ultrasound findings and repeat Pap due to unsatisfactory screening due to obscuring blood. She has a history of right lower pelvic pain, reports her stools have been looser she thinks due to stress. She is not feeling well today has a sore throat and general unwellness. Currently has her menstrual cycle, on the heavier side. 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 Sexual orientation: Straight/Heterosexual Gender identity: Female Female Reproductive History Menstrual Age of Menarche: 11 Date of last menstrual period: 01/12/24 Review of Systems Const All systems reviewed & are unremarkable except as noted in HPI and below Endo Reports no additional complaints Physical Exam Vital Signs: Last Vital Signs BP 100/60 01/13/24 15:56 BMI result Body Mass Index 22.5 Const General: cooperative, healthy appearing and no acute distress Psych Appearance: well kempt Attitude: cooperative Thought process: Normal thought process present Results Reviewed Results Reviewed: [address] [address] Ultrasound Report Signed Patient: Tasha Swanson MR#: [id number] : 1990 Acct:[id number] Age/Sex: 33 / F ADM Date: 11/24/23 Loc: HO.US Attending Dr: Geovanna Wiggins CNM Ordering Physician: Geovanna Wiggins CNM Date of Service: 11/24/23 Procedure(s): US pelvic complete Accession Number(s): [id number] cc: Dionicio Vance MD; Geovanna Wiggins CNM~ EXAMINATION: US PELVIS CLINICAL INFORMATION: Pelvic and perineal pain, last menstrual period November 23, 2023. Right lower quadrant pain. COMPARISON: 02/07/2020 TECHNIQUE: Transabdominal ultrasound images of the pelvis. FINDINGS: The uterus is anteverted and measures 8.1 x 4.5 x 5.4 cm. Endometrial thickness is 12 mm. Endometrium appears echogenic. Patient declined transvaginal ultrasound imaging. Limited visualization due to bowel gas. Right ovary measures 2.6 x 1.4 x 1.4 cm, volume 2.7 mL. Left ovary measures 2.2 x 1.7 x 1.2 cm, volume 2.4 mL. Bilateral ovaries are grossly unremarkable, however, visualization is limited due to bowel gas. US/US pelvic complete IMPRESSION: 1. Endometrial thickness is 12 mm. Endometrium appears echogenic. 2. Bilateral ovaries are grossly unremarkable, however, visualization is limited due to bowel gas. 3. Patient declined transvaginal ultrasound imaging. Limited visualization due to bowel gas. Transvaginal ultrasound images advised if patient agrees. 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 Reviewed diet, fluid intake and self-help measures, numerous causes for abdominal-pelvic pain. Advised if there is any significant pain in the lower abdomen to report to the emergency room immediately. Reschedule Pap screening until the completion of her menstrual cycle. Stress reduction techniques and self-care. All of her questions and concerns were addressed to the best of my ability and shared decision making. She is agreeable to the plan of care. All of her questions and concerns were addressed to the best of my ability and shared decision making. She is agreeable to the plan of care. This note is constructed using voice recognition software. While every effort has been made to ensure accuracy, food beverage server errors may have been included. Coding Level of Care Code Est Pt Level 2 (98199) Diagnoses Encounter to discuss test results Z71.2 Pelvic pain R10.2
[2024-01-13 15:56] VITALS: BP 100/60; BMI 22.5
== END 2024-01-13 16:10 | disposition home or self-care (01) ==
LOC: HO.HWS 15:48
PROVIDERS: PCP Internal Medicine; Visit Provider Advanced Practice Midwife
DX: Z71.2 Person consulting for explanation of examination or test findings (principal); R10.2 Pelvic and perineal pain
CPT/HCPCS: 99212

== ENCOUNTER → 2024-01-13 15:48 | Outpatient (BNVA) | payer OTHER, SELFPAY | PROVIDERS: PCP Internal Medicine; Visit Provider Advanced Practice Midwife ==

== ENCOUNTER 2024-01-19 15:20 | Outpatient (AMB) | payer OTHER, SELFPAY ==
--- NOTE | 2024-01-19 15:23 | MHC.OFFVIS ---
Intake Visit Reasons: pap Allergies cat dander [CATS] Allergy (Mild, Verified 01/13/24 15:54) ITCHING codeine [CODEINE] Adverse Reaction (Unknown, Verified 01/13/24 15:54) NAUSEA Codeine Adverse Reaction (Unknown, Uncoded 11/17/23 14:34) nausea and vomiting HPI Comments Details: Patient was in recently for her annual exam and had a heavy menstrual cycle her Pap at that time was deferred. She does not have any vaginal bleeding today. Has recent finished antibiotics is taking probiotics. 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 Sexual orientation: Straight/Heterosexual Gender identity: Female Female Reproductive History Menstrual Age of Menarche: 11 Date of last pap smear: 11/17/23 (unsat neg hpv) Review of Systems Const All systems reviewed & are unremarkable except as noted in HPI and below Physical Exam Const General: cooperative, healthy appearing and no acute distress Orientation/consciousness: patient oriented x3 GI Rectal Exam - Female: visual inspection normal External Female Exam: normal appearance of the urethra Speculum Exam - Vagina: normal appearance of the vagina and normal vaginal discharge Speculum Exam - Cervix: normal appearance of the cervix (Post LEEP appearance, bled with Pap) Neuro General: patient oriented x3 Assessment & Plan Assessment & Plan (1) Pap smear for cervical cancer screening: Code(s): Z12.4 - Encounter for screening for malignant neoplasm of cervix Plan Pap smear obtained. Advised to continue with probiotics. Annual exam yearly. All of her questions and concerns were addressed to the best of my ability and shared decision making. She is agreeable to the plan of care. This note is constructed using voice recognition software. While every effort has been made to ensure accuracy, taxi servicer errors may have been included. Coding Level of Care Code Est Pt Level 1 (84736) Diagnoses Pap smear for cervical cancer screening Z12.4 Comment No charge visit as this was a follow up from her annual see notes for reason to have Pap
== END 2024-01-19 16:21 | disposition home or self-care (01) ==
LOC: HO.HWS 15:20
PROVIDERS: PCP Internal Medicine; Visit Provider Advanced Practice Midwife
DX: Z12.4 Encounter for screening for malignant neoplasm of cervix (principal)

== ENCOUNTER 2024-01-19 15:20 | Outpatient (REF) | payer OTHER, SELFPAY ==
[2024-01-23 20:13] LABS: HPV mRNA E6/E7 Not Detected (Not Detected)
== END 2024-01-19 15:21 | disposition home or self-care (01) ==
LOC: HO.LNP 15:20
PROVIDERS: PCP Internal Medicine; Visit Provider Advanced Practice Midwife
DX: R87.615 Unsatisfactory cytologic smear of cervix (principal); Z12.4 Encounter for screening for malignant neoplasm of cervix
CPT/HCPCS: 87624; 88175; 99211

== ENCOUNTER 2024-10-24 10:14 | Outpatient (AMB) | payer OTHER, SELFPAY ==
--- NOTE | 2024-10-24 10:14 | MHC.OFFVIS ---
Intake Visit Reasons: Control Consult Allergies cat dander [CATS] Allergy (Mild, Verified 01/13/24 15:54) ITCHING codeine [CODEINE] Adverse Reaction (Unknown, Verified 01/13/24 15:54) NAUSEA Codeine Adverse Reaction (Unknown, Uncoded 11/17/23 14:34) nausea and vomiting HPI HPI Control Consult: Details: wants control, has used iud in past and found it uncomfortable used patch in past, wasnt good w pills, used depo and liked it. last upi was 2 days ago-- (changed mind- it was 10/18.) previous to that was a month ago, (I did offer plan b when she said it was 2 days ago). recent lmps-- jul 27- jul 30 august 19- spotting, august 20- normal period september 14-spotting, period on 09/15-, october 02- october 2, october 10,, spotting, october 12--heavy through . --- wants to start depo- i rec no upi, till next menses, call w 1st day fo real period symtoms for first depo, do preg test at visit, and use condoms for at least 2w . has annual in november, , f/u on bleeding patterns etc.( though will change on depo). 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 Sexual orientation: Straight/Heterosexual Gender identity: Female Female Reproductive History Menstrual Age of Menarche: 11 Duration of menses: 3-5 days Date of last menstrual period: 10/10/24 control method: none Total pregnancies: 3 Full term: 2 Ab spontaneous: 1 Date of last pap smear: 11/17/23 (pap smear unsatisfactory, negative hpv) History of abnormal pap smear: Yes (2015 2014 2008 CIN1, 2014 2013 2010 ASCUS, 2011 CIN3) Telehealth Telehealth Telehealth Platform: [employer] [facility] Location of provider rendering services: practice address Location of patient: address on file Patient Identification confirmed using: Name, : Yes Telehealth method: video Patient verbally consented to treatment: Yes Patient verbally consented to billing insurance company: Yes Patient informed of any privacy concerns related to visit: Yes Minutes spent on Phone/Video with Pt.: 34 (2 cr/34 speaking w pt- video/5 charting-41) Results Reviewed Results Reviewed: Name: Tasha Swanson Age/Sex: 33/F Attending: Geovanna Wiggins CNM : 1990 Submitted by: Geovanna Wiggins CNM Copies to: Dionicio Vance MD MR #: [id number] Status: DEP REF Collected: 11/17/23 Location: [facility] Received: 11/18/23 Interpretation Unsatisfactory Insufficient cellularity due to excessive blood. HPV mRNA E6/E7: NOT DETECTED This assay detects E6/E7 viral messenger RNA (mRNA) from 14 high-risk HPV types (16, 18, 31, 33, 35, 39, 45, 51, 52, 56, 58, 59, 66, 68) HPV testing performed by [facility], [place], [place]. See reference laboratory portion of the EMR for entire report. Clinical Information LMP: 10/30/2023 Previous PAP test: 02/01/20, WNL Material Received ThinPrep-Cervical Copies To Dionicio Vance MD [address] [place] [address], [address] [id number] Geovanna Wiggins CNM [facility] Women[facility] [address] [place] [address] Electronically Signed By: Patricia Cabrera Shanna 12/05/23 1144 The Pap Test is a screening procedure with the inherent possibility of both false negative and false positive results. Results should be interpreted in the context of historic and current clinical findings. Reliability of the Pap Test is enhanced by performing the test on a regular repetitive basis. Patient: Tasha Swanson Age/Sex: 33/F MR#: [id number] Page 1 of 1 pap w hpv on 01/19/24= neg w neg hpv. (other lab) - [address] [address] Ultrasound Report Signed Patient: Tasha Swanson MR#: [id number] : 1990 Acct:[id number] Age/Sex: 33 / F ADM Date: 11/24/23 Loc: HO.US Attending Dr: Geovanna Wiggins CNM Ordering Physician: Geovanna Wiggins CNM Date of Service: 11/24/23 Procedure(s): US pelvic complete Accession Number(s): [id number] cc: Dionicio Vance MD; Geovanna Wiggins CNM~ EXAMINATION: US PELVIS CLINICAL INFORMATION: Pelvic and perineal pain, last menstrual period November 23, 2023. Right lower quadrant pain. COMPARISON: 02/07/2020 TECHNIQUE: Transabdominal ultrasound images of the pelvis. FINDINGS: The uterus is anteverted and measures 8.1 x 4.5 x 5.4 cm. Endometrial thickness is 12 mm. Endometrium appears echogenic. Patient declined transvaginal ultrasound imaging. Limited visualization due to bowel gas. Right ovary measures 2.6 x 1.4 x 1.4 cm, volume 2.7 mL. Left ovary measures 2.2 x 1.7 x 1.2 cm, volume 2.4 mL. Bilateral ovaries are grossly unremarkable, however, visualization is limited due to bowel gas. US/US pelvic complete IMPRESSION: 1. Endometrial thickness is 12 mm. Endometrium appears echogenic. 2. Bilateral ovaries are grossly unremarkable, however, visualization is limited due to bowel gas. 3. Patient declined transvaginal ultrasound imaging. Limited visualization due to bowel gas. Transvaginal ultrasound images advised if patient agrees. 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 last upi was 2 days ago-- (changed mind- it was 10/18.) previous to that was a month ago, (I did offer plan b when she said it was 2 days ago). recent lmps-- jul 27- jul 30 august 19- spotting, august 20- normal period september 14-spotting, period on 09/15-, october 02- october 2, october 7,, spotting, october 12--heavy through 13. --- wants to start depo- i rec no upi, till next menses, call w 1st day fo real period symtoms for first depo, do preg test at visit, and use condoms for at least 2w . has annual in november, , f/u on bleeding patterns etc.( though will change on depo). Teaching done about Depo-Provera and also about possible a Mirena in the future. Discussed concerns of long-term use with thinning of bones and making sure she gets enough calcium in her diet and weight-bearing exercise. Also discussed the change of bleeding patterns to expect she has been keeping track but it is pretty clear her periods have not been normal and regular. I recommend she call the office with the 1st real day of her period when she is very sure it is her period, and arrange to get the Depo Provera shot in the office then. I told her to expect to do a test. And that she should use condoms from this point forward until she is on the Depo for least 2 weeks. I am ordering a year's supply but she can discuss future use at future visits to I also found her re Pap that was done in January which was negative with negative HPV, it was done in a different lab and is not a listed under pathology. Prescription sent for [facility]-Provera to [facility] on [facility], and I recommend she pick it up and have it ready and bring it to the office when she comes to get her Depo shot Medications: New medroxyprogesterone (Depo-Provera) to start at beg of next menses 150 mg IM Q12W 1 mL 4RF Coding Level of Care Code Tele Est Pt Level 3 (95996) Diagnoses History of irregular menstrual cycles Z87.42 control counseling Z30.09 Time Spent (min) 41
--- OUTSIDE RECORDS SUMMARY | 2024-10-24 11:47 | XMS_ITS | Encounter Summary ---
Author Organization [facility] Address [address] [place] [address] Phone Care Team Providers Care Cell Inspector Name Role Phone Marybeth Mercado MD Primary Care Provider Encounter Details Date Type Department Care Team (Late st Contact Info) Description 01/20/2017 Conversion Encounter [facility] [address] [place] [address] Social History Tobacco Use Types Packs/Day Years Used Date Smoking Tobacco: Never Assessed Comments Unknown Sex and Gender Information Value Date Recorded Sex Assigned at Not on file Legal Sex Female 4:51 PM EDT Gender Identity Not on file Sexual Orientation Not on file documented as of this encounter Plan of Treatment Not on file documented as of this encounter Visit Diagnoses Not on filedocumented in this encounter Care Teams Cell Inspector Relationship Specialty Start Date End Date Marybeth Mercado MD [address] [place] [address] PCP - General 01/14/17 09/07/22 documented as of this encounter
--- OUTSIDE RECORDS SUMMARY | 2024-10-24 11:47 | XMS_ITS | Clinical Summary ---
Author Organization [facility] Address [address] [place] [id number] Phone Care Team Providers Care Engine Room Helper Name Role Phone Unavailable Primary Care Provider Unavailabl e Immunizations Immunization Administration Dates Next Due DTP 05/05/1999, 4,07/06/1990,09/03,1989 H1N1 09/01/2009 HPV, Quadrivalent 11/06/2009,09/01/2009 Hep B, ped/adol 09/28/2000,05/16/2000,03/23/2000 Hib (PRP-T) 05/05/1990 IPV 05/05/1999, 4,07/06/1990,07/06 MMR 03/05/1993,02/03/1990 Meningococcal Conj (Menactra) MCV4P 09/01/2009 Td (adult) (MBL), 2 Lf tetan us toxoid, PF, adsorbed 09/14/2000 Tdap 09/01/2009 Family History Relation Name Status Comments Father Alive Father: Alive a nd well Mother Alive Mother: Alive a nd well Other No family histo ry of Elevated cholesterol, No family history of Developmental dislocation of hip, No family history of Asthma, No family history of Autism, No family history of ADD/ADHD, No family history of Strabismus/amblyopia, No family history of Diabetes mellitus, No family history of Obesity, No family history of Deafness, No family history of Migraines, No family history of Sudden /NC under age 55, No family history of Seizure disorder Social History Tobacco Use Types Packs/Day Years Used Date Smoking Tobacco: Never Assessed Comments Unknown Sex and Gender Information Value Date Recorded Sex Assigned at Not on file Legal Sex Female 4:51 PM EDT Gender Identity Not on file Sexual Orientation Not on file Last Filed Vital Signs Vital Sign Reading Time Taken Comments Blood Pressure 110/60 09/01/2009 12:00 AM EDT Pulse - - Temperature 36.1 ??C (97 ??F) 09/19/2009 12:00 AM EDT Respiratory Rate - - Oxygen Saturation - - Inhaled Oxygen Concentration - - Weight 40.8 kg (90 lb) 11/12/2009 12:00 AM EDT Height 141.7 cm (4' 7.8 ) 11/12/2009 12:00 AM ED T Body Mass Index 20.32 11/12/2009 12:00 AM EDT Plan of Treatment Health Maintenance Due Date Last Done Comments Varicella Vaccines (1 of 2 - 13+ 2-dose series) 2002 HPV Vaccines (3 - 3-dose series) 03/04/2010 11/06/2009, 09/01/2009 DTaP,Tdap,and Td Vaccines (8 - Td or Tdap) 09/02/2019 09/01/2009, 09/14/2000, 05/05/1999, Additional history exists Influenza Vaccines (#1) 2024 COVID-19 Vaccine ( season) 2024 HIB Vaccines Completed 05/05/1990 MMR Vaccines Completed 03/05/1993, 02/03/1990 IPV Vaccines Completed 05/05/1999, 11/06, 07/06/1990, Additional history exists Hepatitis B Vaccines Completed 09/28/2000, 05/16/2000, 03/23/2000 Meningococcal Vaccine Aged Out 09/01/2009 No dianne saeid eligible based on patient's age to complete this topic Hepatitis A Vaccines Aged Out No long er eligible based on patient's age to complete this topic Men B Vaccine Aged Out No longer elig ible based on patient's age to complete this topic Pneumococcal Vaccine Aged Out No long er eligible based on patient's age to complete this topic
--- OUTSIDE RECORDS SUMMARY | 2024-10-24 11:47 | XMS_ITS | Encounter Summary ---
Author Organization [facility] Address [address] [place] [phone] Phone Care Team Providers Care Marketing Pr Intern Name Role Phone Marybeth Mercado MD Primary Care Provider Encounter Details Date Type Department Care Team (Late st Contact Info) Description 02/21/2013 Documentation [facility] [address] [place] [address] Family Medicine, Physician [address] [place], [place] [id number] Social History Tobacco Use Types Packs/Day Years [...] on filedocumented in this encounter Care Teams Marketing Pr Intern Relationship Specialty Start Date End Date Marybeth Mercado MD [address] [place] [address] [place] [address] PCP - General 01/14/17 09/07/22 documented as of this encounter
== END 2024-10-24 13:02 | disposition home or self-care (01) ==
LOC: HO.HWSM 10:14
PROVIDERS: PCP Internal Medicine; Visit Provider Advanced Practice Midwife
DX: Z87.42 Personal history of other diseases of the female genital tract (principal); Z30.09 Encounter for other general counseling and advice on contraception
CPT/HCPCS: 99213

== ENCOUNTER 2024-11-07 11:00 | Outpatient (AMB) | payer OTHER, SELFPAY ==
--- NOTE | 2024-11-07 11:18 | AM.OFFVISNUR ---
Intake Visit Reasons: DEPO Allergies cat dander [CATS] Allergy (Mild, Verified 01/13/24 15:54) ITCHING codeine [CODEINE] Adverse Reaction (Unknown, Verified 01/13/24 15:54) NAUSEA Codeine Adverse Reaction (Unknown, Uncoded 11/17/23 14:34) nausea and vomiting Coding
[2024-11-07 11:25] VITALS: BP 108/72; BMI 24.1
--- NOTE | 2024-11-07 11:25 | AM.OFFVISNUR ---
Vital Signs 11/07/24 11:25 Height 4 ft 9 in Weight 111 lb 6 oz BMI 24.1 BP 108/72 Blood Pressure Location Rt brachial Position Sitting Intake Visit Reasons: DEPO Allergies cat dander [CATS] Allergy (Mild, Verified 01/13/24 15:54) ITCHING codeine [CODEINE] Adverse Reaction (Unknown, Verified 01/13/24 15:54) NAUSEA Codeine Adverse Reaction (Unknown, Uncoded 11/17/23 14:34) nausea and vomiting Nursing Note Patient here to retart Depo Provera Injections. LMP 11/06/24, test in office negative. Patient tolerated injection well with no complaints. Follow up in 12 weeks Office Procedures Depo Questionnaire If YES to any of the following questions, please consult a provider. Date of last menstrual period: 11/06/24 Date of last gynecology exam: 01/19/24 Menstrual pattern since last injection has been: Normal test in office results: Negative Irregular bleeding?: No Breast lumps or other breast changes?: No Changes in weight or appetite?: No Depression or changes in mood?: No Abnormal hair growth or loss?: No Skin problems (rash, acne, discoloration)?: No Pain at the injection site?: Not Applicable Headaches?: No Nervousness?: No Abdominal pain or cramping?: No Dizziness or nausea?: No Fatigue or weakness?: No Decrease in sexual drive?: No Chest pain or shortness of breath?: No Swelling in arms or legs?: No Form completed by?: Brynn Evans LPN Office Meds Depo-Provera 150 mg/mL intramuscular syringe Performing Provider: Jeanne Blackwood CNM [place] [facility] [place] [facility] Administered by: Brynn Evans LPN on 11/07/24 11:28 Dose Route Admin Location Dispensed Lot Number Expiration Date [facility] It [employer] 150 mg IM lgm 1 mL [id number] 04/09/11 80829-614-23 [facility] Results AMB Test Urine AMB Test Urine Negative Last Edit by Brynn Evans LPN on 11/07/24 11:36 Assessment & Plan Assessment & Plan Orders: Orders AMB Medroxyprogesterone Injection Patient Supplied Today Z30.42 - Encounter for surveillance of injectable contraceptive Medications: New Depo-Provera (medroxyprogesterone) 150 mg IM ONCE 1 mL 0RF NS Z30.42 - Encounter for surveillance of injectable contraceptive Coding Level of Care Code Established Pt Est Pt Level 1 (17849) Patient Type Established History Problem Focused Exam Problem Focused Medical Decision Making Straight Forward Time Spent (min) 20
== END 2024-11-07 11:20 | disposition home or self-care (01) ==
LOC: HO.HWS 11:00
PROVIDERS: PCP Internal Medicine; Visit Provider Advanced Practice Midwife
DX: Z30.42 Encounter for surveillance of injectable contraceptive (principal)

== ENCOUNTER → 2024-11-07 11:00 | Outpatient (BNVA) | payer OTHER, SELFPAY | PROVIDERS: PCP Internal Medicine; Visit Provider Advanced Practice Midwife | DX: Z30.42 Encounter for surveillance of injectable contraceptive (principal) | CPT/HCPCS: 96372; 99211; J1050 ==

== ENCOUNTER 2024-11-22 14:58 | Outpatient (AMB) | payer OTHER, SELFPAY ==
--- NOTE | 2024-11-22 15:05 | MHC.OFFVIS ---
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 Doing well with head of stock concerns: Irregular spotting since initiation of Depo this month. Currently is sexually active. She denies vaginal itching or irritation. STI screening offered; she accepts, cultures only. She tries to eat healthy and stays active with exercise. Denies family history of breast, ovarian or colon cancer. Last pap smear 2023, negative, prior unsatisfactory. History of LEEP 2011. 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 Sexual orientation: Straight/Heterosexual Gender identity: Female Female Reproductive History Menstrual Age of Menarche: 11 control method: progesterone injection (Depo 11/07/24) Total pregnancies: 3 Full term: 2 Number of Living Children: 2 Ab spontaneous: 1 Date of last pap smear: 11/17/23 (unsat neg hpv 01/19/24 neg pap and hpv) History of abnormal pap smear: Yes (see intake note) Review of Systems Const All systems reviewed & are unremarkable except as noted in HPI and below Reports as per HPI Eyes Reports no additional complaints ENT Reports no additional complaints Card Reports no additional complaints Resp Reports no additional complaints GI Reports as per HPI and Reports no additional complaints Reports as per HPI Musc Reports no additional complaints Skin/Breast Reports as per HPI Neuro Reports no additional complaints Psych Reports no additional complaints Endo Reports no additional complaints Toby/Lymph Reports no additional complaints Aller/Immun Reports no additional complaints Physical Exam Vital Signs: Last Vital Signs BP 110/70 11/22/24 15:07 BMI result Body Mass Index 23.8 Const General: cooperative, healthy appearing, no acute distress, well developed and alert Orientation/consciousness: patient oriented x3 HEENT Head: Yes normal to inspection Eyes General: appearance normal, both eyes and all related structures Neck Neck: Yes normal visual inspection Thyroid: Thyroid normal Chest Chest palpation & inspection: normal inspection of the chest and other (no puckering, dimpling, peau de orange, retraction, discharge, masses) Breast/axilla inspection: normal inspection of the breasts Breast/axilla palpation: normal palpation of the breasts Resp Effort & Inspection: normal respiratory effort GI Inspection: Yes normal to inspection Palpation (GI): Soft to palpation Rectal Exam - Female: deferred General: Yes bladder normal to palpation External Female Exam: normal external appearance and normal appearance of the urethra Speculum Exam - Vagina: normal appearance of the vagina, normal palpation and normal vaginal discharge Speculum Exam - Cervix: normal palpation and Other cervical findings present (Post LEEP appearance, small amount of bled at os) Bimanual exam- vagina & uterus: normal bimanual exam, normal palpation, uterine size normal, bladder normal to palpation, normal palpation and non-tender Bimanual Exam- Adnexa, other: no masses Skin General skin exam: no rashes or lesions noted Rashes: no rashes Neuro General: patient oriented x3 Cognition (Neuro): normal cognition Extrem General: Yes normal to inspection Psych Attitude: cooperative Thought process: Normal thought process present Assessment & Plan Assessment & Plan (1) Encounter for annual routine gynecological examination: Code(s): Z01.419 - Encounter for gynecological examination (general) (routine) without abnormal findings Category: Medical (2) Encounter for well woman exam with routine gynecological exam: Code(s): Z01.419 - Encounter for gynecological examination (general) (routine) without abnormal findings Category: Medical Plan Discussed: Current recommendations for pap smears per ASCCP guidelines. Breast awareness and periodic breast exams. Maintain a healthy lifestyle including a well balanced diet and routine exercise. Condom use for STD prevention. Continue with Depo every 12 weeks. Bleeding occurrences with Depo and when to call for follow up. Patient verbalizes understanding and agrees to the plan of care. She was given opportunity to ask questions and all questions were answered to the best of my ability. RTO in one year for annual head of stock examination. This note is constructed using voice recognition software. While every effort has been made to ensure accuracy, brim flexer errors may have been included. Orders: Orders CT NG by PCR Today Z20.2 - Contact with and (suspected) exposure to infections with a predominantly sexual mode of transmission Bacterial Vaginosis Panel Today Z20.2 - Contact with and (suspected) exposure to infections with a predominantly sexual mode of transmission Medications: Refilled medroxyprogesterone (Depo-Provera) to start at beg of next menses 150 mg IM Q12W 1 mL 4RF Coding Level of Care Code Est Pt Prev Care 18-39y(67805) Diagnoses Encounter for annual routine gynecological examination Z01.419 Encounter for well woman exam with routine gynecological exam Z01.419
[2024-11-22 15:07] VITALS: BP 110/70; BMI 23.8
--- OUTSIDE RECORDS SUMMARY | 2024-11-22 16:18 | XMS_ITS | Clinical Summary ---
Author Organization [facility] Address [address] [place] [phone] Phone Care Team Providers Care Finisher Machine Name Role Phone Unavailable Primary Care Provider [...] of Migraines, No family history of Sudden /[place] under age 55, No family history of [...] AM EDT Pulse - - Temperature 36.1 C (97 F) 09/19/2009 12:00 AM EDT Respiratory Rate - [...]
== END 2024-11-22 15:37 | disposition home or self-care (01) ==
LOC: HO.HWS 14:58
PROVIDERS: PCP Internal Medicine; Visit Provider Advanced Practice Midwife
DX: Z01.419 Encounter for gynecological examination (general) (routine) without abnormal findings (principal)
CPT/HCPCS: 99395; 99459

== ENCOUNTER 2024-11-22 14:58 | Outpatient (REF) | payer OTHER, SELFPAY ==
[2024-11-22 20:20] LABS: Bacterial Vaginosis PCR POSITIVE (Negative); Candida Group PCR NOT DETECTED (Not Detect); Candida glab krusei PCR NOT DETECTED (Not Detect); Trichomonas vaginalis PCR NOT DETECTED (Not Detect)
[2024-11-22 21:22] LABS: CT PCR NOT DETECTED (Not Detect.); NG PCR NOT DETECTED (Not Detect.)
== END 2024-11-22 14:59 | disposition home or self-care (01) ==
LOC: HO.LNP 14:58
PROVIDERS: PCP Internal Medicine; Visit Provider Advanced Practice Midwife
DX: Z01.419 Encounter for gynecological examination (general) (routine) without abnormal findings (principal); Z20.2 Contact with and (suspected) exposure to infections with a predominantly sexual mode of transmission
CPT/HCPCS: 81515; 87491; 87591

== ENCOUNTER 2024-11-22 15:29 | Outpatient (REF) | payer OTHER, SELFPAY | END 2024-11-22 15:30 | disposition home or self-care (01) | LOC: HO.LAB 15:29 | PROVIDERS: Visit Provider Advanced Practice Midwife | DX: Z13.89 Encounter for screening for other disorder (principal) ==

== ENCOUNTER 2024-12-20 14:56 | Outpatient (AMB) | payer OTHER, SELFPAY ==
--- NOTE | 2024-12-20 14:58 | A.OFFPC_ITS ---
Vital Signs 12/20/24 15:03 Height 4 ft 9 in Weight 111 lb BMI 24.0 BP 110/78 Blood Pressure Location Lt brachial Position Sitting Pulse 87 Pulse Source Pulse Oximeter Temp 97.7 F Temp Source Temporal Artery Scan Pulse Oximetry (%) 99 Oxygen Delivery Method Room Air Intake Visit Reasons: Annual Catering Sous Chef Required: No Accompanied by: Self / Same As Patient Allergies cat dander (CATS) Allergy (Mild, Verified 12/20/24 14:59) ITCHING Penicillins Adverse Reaction (Mild, Verified 12/20/24 15:02) motion sickness codeine (CODEINE) Adverse Reaction (Unknown, Verified 12/20/24 14:59) NAUSEA Codeine Adverse Reaction (Unknown, Uncoded 11/17/23 14:34) nausea and vomiting Tobacco use date assessed: 12/20/24 HPI HPI Comments History of Present Illness Details The patient is a 34 year old female with a past medical history abnormal pap, depression, presenting for annual She has chronic fatigue, low motivation. Many years ago tried prozac, was not consistent with it. She is interested in another medication trial. B12 borderline low in the past Follows with lean manufacturing specialist at [facility] ROS CONSTITUTIONAL: Denies weight loss, fever and chills. HEENT: Denies changes in vision and hearing. RESPIRATORY: Denies SOB and cough. CV: Denies palpitations and CP GI: Denies abdominal pain, nausea, vomiting and diarrhea. : Denies dysuria and urinary frequency. MSK: Denies new myalgia and joint pain. SKIN: Denies rash and pruritus. NEUROLOGICAL: Denies headache PSYCHIATRIC: Denies recent changes in mood. PHYSICAL EXAM: GENERAL: Alert and oriented x 3. NAD EYES: EOMI. Anicteric. HENT: Moist mucous membranes. No scleral icterus. No cervical lymphadenopathy. LUNGS: Clear to auscultation bilaterally. CARDIOVASCULAR: Regular rate and rhythm. No murmur. No JVD. ABDOMEN: Soft, non-tender +bs EXTREMITIES: No edema. Non-tender. SKIN: No rashes or lesions. Warm. NEUROLOGIC: No focal neurological deficits. CN II-XII grossly intact PSYCHIATRIC: Cooperative. 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 1. Little interest or pleasure in doing things: several days 2. Feeling down, depressed, or hopeless: several days 3. Trouble falling or staying asleep, or sleeping too much: several days 4. Feeling tired or having little energy: nearly every day 5. Poor appetite or overeating: not at all 6. Feeling bad about yourself - or that you are a failure or have let yourself or your family down: not at all 7. Trouble concentrating on things, such as reading the newspaper or watching television: more than half the days 8. Moving or speaking so slowly that other people could have noticed. Or the opposite - being so fidgety or restless that you have been moving around a lot more than usual: not at all 9. Thoughts that you would be better off or of hurting yourself in some way: not at all Total score: 8 Depression Screening Interpretation: Positive Depression Screening Done: Yes 72621 - PHQ-9 Billing: Yes Source: Developed by Drs. Abundio Arora, Loida Puentes, Garrett Sorensen and colleagues, with an educational michael from [employer]. Thrive Questionnaire Date Thrive assessed: 12/20/24 I am a: Patient What is your living situation today?: I have a steady place to live Within the past 12 months, did the food you bought not last and you didn't have the money to get more?: Never true Within the past 12 months, did you worry whether your food would run out before you got money to buy more?: Never true Do you have trouble paying for medicines?: No Do you have trouble getting transportation to medical appointments?: No Do you have trouble paying your heating and electricity bill?: No Do you have trouble taking care of your child, family member or friend?: No Do you have trouble with day-to-day activities such as bathing, preparing meals, shopping, managing finances, etc.?: No Are you currently unemployed and looking for a job?: No Are you interested in more education?: No THRIVE Score: 0 AUDIT C Alcohol Use Questionnaire (AUDIT-C) 1. How often do you have a drink containing alcohol?: Monthly or less 2. How many drinks containing alcohol do you have on a typical day when you are drinking?: 1 or 2 Total Score: 1 HUYEN-7 AMB Questionnaire HUYEN-7 Date HUYEN - 7 assessed: 12/20/24 Feeling nervous, anxious, or on edge: 1 = Several days Not being able to stop or control worryin = More than half the days Worrying too much about different things: 2 = More than half the days Trouble relaxin = Several days Being so restless that it is hard to sit still: 0 = Not at all Becoming easily annoyed or irritable: 2 = More than half the days Feeling afraid as if something awful might happen: 1 = Several days Total HUYEN-7 score (0-4 normal; 5-9 mild; 10-14 moderate; 15-21 severe): 9 Source: Developed by Drs. Abundio Arora, Loida Puentes, Garrett Sorensen and colleagues, with an educational michael from [employer]. Physical exam (Primary Care) Vital Signs: Last Vital Signs Temp 97.7 F 12/20/24 15:03 Pulse 87 12/20/24 15:03 BP 110/78 12/20/24 15:03 Pulse Ox 99 12/20/24 15:03 Oxygen Delivery Method Room Air 12/20/24 15:03 BMI result Body Mass Index 24.0 Tobacco/Smoking Status: Tobacco use Status Tobacco use date assessed 12/20/24 12/20/24 15:06 Patient Tobacco Use Status Never used Tobacco 12/20/24 15:06 e-Cigarette/Vaping Use Never Used 12/20/24 15:06 PHQ-9: PHQ-9 Score PHQ-9: Total score 8 07/17/25 15:44 Depression Screening Interpretation: Positive Thrive Assessment: Date of Thrive Assessment Date Thrive assessed 12/20/24 12/20/24 15:44 Coding Level of Care Code New Pt Prev Care 18-39yr(33744 Diagnoses Physical exam Z00.00 Additional Codes PHQ-9 - 61213 - PHQ-9 Billing: Yes ([id number]) Assessment & Plan Assessment & Plan (1) Physical exam: Code(s): Z00.00 - Encounter for general adult medical examination without abnormal findings Plan 34 year old for physical exam Past medical surgical social reviewed Preventive measures for age discussed Depression low energy-trial wellbutrin labs ordered Orders: Orders Complete Blood Count Auto Diff 12/20/24 Z13.0 - Encounter for screening for diseases of the blood and blood-forming organs and certain disorders involving the immune mechanism, Z13.220 - Encounter for screening for lipoid disorders, Z13.228 - Encounter for screening for other metabolic disorders LDL Cholesterol Direct 12/20/24 Z13.0 - Encounter for screening for diseases of the blood and blood-forming organs and certain disorders involving the immune mechanism, Z13.220 - Encounter for screening for lipoid disorders, Z13.228 - Encounter for screening for other metabolic disorders Vitamin B12 and Folate 12/20/24 Z13.0 - Encounter for screening for diseases of the blood and blood-forming organs and certain disorders involving the immune mechanism, Z13.220 - Encounter for screening for lipoid disorders, Z13.228 - Encounter for screening for other metabolic disorders Lyme IgG/IgM w/reflex to WB 12/20/24 Z13.0 - Encounter for screening for diseases of the blood and blood-forming organs and certain disorders involving the immune mechanism, Z13.220 - Encounter for screening for lipoid disorders, Z13.228 - Encounter for screening for other metabolic disorders TSH reflex Free T4 12/20/24 R53.83 - Other fatigue Erythrocyte Sedimentation Rate 12/20/24 M89.8X9 - Other specified disorders of bone, unspecified site Comprehensive Met. Panel 12/20/24 Z13.0 - Encounter for screening for diseases of the blood and blood-forming organs and certain disorders involving the immune mechanism, Z13.220 - Encounter for screening for lipoid disorders, Z13.228 - Encounter for screening for other metabolic disorders Hemoglobin A1c 12/20/24 R35.89 - Other polyuria IRON PROFILE 12/20/24 R53.83 - Other fatigue Rheumatoid Factor 12/20/24 M89.8X9 - Other specified disorders of bone, unspecified site Medications: New bupropion HCl SR (Wellbutrin SR) 150 mg PO DAILY 90 tabs 1RF
[2024-12-20 15:03] VITALS: BP 110/78; PULSE 87; TEMP 36.5; O2SAT 99; BMI 24.0
== END 2024-12-20 16:28 | disposition home or self-care (01) ==
LOC: HO.HMCHD 14:57
PROVIDERS: PCP Internal Medicine; Visit Provider Internal Medicine
DX: Z00.00 Encounter for general adult medical examination without abnormal findings (principal)

== ENCOUNTER 2024-12-20 14:56 | Outpatient (REF) | payer OTHER, SELFPAY ==
[2024-12-20 15:41] LABS: MANUAL DIFF FLAG NO
[2024-12-20 15:57] LABS: Hematocrit 41.6 % (37.0-47.0); Hemoglobin 14.1 g/dl (12.0-16.0); Imm Gran Abs Auto 0.01 X10*3/uL (0.00-0.03); Imm Gran Pct Auto 0.1 % (0.0-0.4); Lymphocytes Absolute Auto 2.5 X10*3/uL (1.2-4.9); Mean Corpuscular HGB Conc 33.9 g/dl (31.0-35.0); Mean Corpuscular Hemoglobin 30.4 pg (27.0-33.0); Mean Corpuscular Volume 89.7 fL (80.0-98.0); NRBC Abs Auto 0.000 X10*3/uL (0.0-0.012); NRBC Pct Auto 0.0 /100WBC (0.0-0.2); Platelet Count 372 X10*3/uL (160-400); Red Blood Count 4.64 X10*6/uL (4.20-5.50); White Blood Count 8.2 X10*3/uL (4.8-10.8)
--- OUTSIDE RECORDS SUMMARY | 2024-12-20 16:02 | XMS_ITS | Clinical Summary ---
Author Organization [facility] Address [address] [place] [phone] Phone Care Team Providers Care Radio Program Director Name Role Phone Unavailable Primary Care Provider [...] of Migraines, No family history of Sudden /[place] under age 55, No family history of [...] 09/02/2019 09/01/2009, 09/14/2000, 05/05/1999, Additional history exists COVID-19 Vaccine ( season) 2024 Influenza Vaccines (#1) 2025 HIB Vaccines Completed 05/05/1990 MMR Vaccines Completed [...]
[2024-12-20 16:13] LABS: Hemoglobin A1C 120.8176 umol/L; Total Hemoglobin (HGBA1C) 3693.9156 umol/L
[2024-12-20 16:48] LABS: Alanine Aminotransferase 22 U/L (0-31); Albumin Level 4.7 g/dL (3.5-5.0); Alkaline Phosphatase 61 U/L (39-117); Anion Gap 12 (12-20); Aspartate Amino Transferase 23 U/L (5-31); Blood Urea Nitrogen 10 mg/dL (9-16); Calcium 9.3 mg/dL (8.4-10.2); Carbon Dioxide 24 mmol/L (22-29); Chloride 108 mmol/L (96-108); Estimated Glomerular Filt Rate > 60; Iron 93 mcg/dL (30-160); Percent Iron Saturation 28 % (15-50); Potassium 4.0 mmol/L (3.3-5.1); Sodium 140 mmol/L (135-145); Total Iron Binding Capacity 330 mcg/dL (228-428); Total Protein 7.9 g/dL (6.5-8.0); Unsaturated Iron Binding 237 ug/dL
[2024-12-20 17:05] LABS: Folate 11.9 ng/mL (> or = 4.0); Vitamin B12 357 pg/mL (200-900)
[2024-12-21 15:39] LABS: Lyme Blot 1.26 index
[2024-12-25 10:57] LABS: Lyme Abs Screen POSITIVE
[2024-12-27 12:54] LABS: 39KD (IgG) Band NON-REACTIVE; 41KD (IgG) Band REACTIVE; Lyme IgG Blot Interp NEGATIVE (NEGATIVE); Lyme IgM Blot Interp POSITIVE (NEGATIVE)
== END 2024-12-20 14:57 | disposition home or self-care (01) ==
LOC: HO.LAB 14:56
PROVIDERS: PCP Internal Medicine; Visit Provider Internal Medicine
DX: Z00.00 Encounter for general adult medical examination without abnormal findings (principal); R35.89 Other polyuria; R53.83 Other fatigue; M89.8X9 Other specified disorders of bone, unspecified site; Z13.0 Encounter for screening for diseases of the blood and blood-forming organs and certain disorders involving the immune mechanism; Z13.220 Encounter for screening for lipoid disorders; Z13.228 Encounter for screening for other metabolic disorders; Z13.1 Encounter for screening for diabetes mellitus
CPT/HCPCS: 36415; 80053; 82607; 82746; 83036; 83540; 83721; 84443; 85025; 85652; 86431; 86617; 86618; 96127

== ENCOUNTER 2025-01-29 13:57 | Outpatient (AMB) | payer OTHER, SELFPAY ==
--- NOTE | 2025-01-29 14:23 | AM.OFFVISNUR ---
Vital Signs 01/29/25 14:32 Height 4 ft 9 in Weight 112 lb BMI 24.2 Intake Visit Reasons: DEPO Allergies cat dander (CATS) Allergy (Mild, Verified 12/20/24 14:59) ITCHING Penicillins Adverse Reaction (Mild, Verified 12/20/24 15:02) motion sickness codeine (CODEINE) Adverse Reaction (Unknown, Verified 12/20/24 14:59) NAUSEA Codeine Adverse Reaction (Unknown, Uncoded 11/17/23 14:34) nausea and vomiting Nursing Note Patient here for scheduled depo provera injection. Pt had not problems but did bleed on and off for 3 months. Patient to schedule next injection in 12 weeks. Office Procedures Depo Questionnaire If YES to any of the following questions, please consult a provider. Date of last injection: 11/07/24 Date of last menstrual period: 11/12/24 Date of last gynecology exam: 11/22/24 Menstrual pattern since last injection has been: Normal Irregular bleeding?: Yes Breast lumps or other breast changes?: No Changes in weight or appetite?: No Depression or changes in mood?: No Abnormal hair growth or loss?: No Skin problems (rash, acne, discoloration)?: No Pain at the injection site?: No Headaches?: No Nervousness?: No Abdominal pain or cramping?: No Dizziness or nausea?: No Fatigue or weakness?: No Decrease in sexual drive?: No Chest pain or shortness of breath?: No Swelling in arms or legs?: No Any other problems or concerns?: Brynn Evans LPN Form completed by?: Brynn Evans LPN Office Meds Depo-Provera 150 mg/mL intramuscular syringe Performing Provider: Jeanne Blackwood CNM Performing Location: [facility] Administered by: Brynn Evans LPN on 01/29/25 14:23 Dose Route Admin Location Dispensed Lot Number Expiration Date [facility] Building Custodial Supervisor 150 mg IM RGM 1 mL [id number] 05/05/27 29043-429-57 [facility] Total Dispensed Waste 1 mL 0 % Assessment & Plan Assessment & Plan Orders: Orders AMB Medroxyprogesterone Injection Patient Supplied Today Z30.42 - Encounter for surveillance of injectable contraceptive Coding Level of Care Code Established Pt Est Pt Level 1 (28773) Patient Type Established History Problem Focused Exam Problem Focused Medical Decision Making Straight Forward Time Spent (min) 20
[2025-01-29 14:32] VITALS: BMI 24.2
--- OUTSIDE RECORDS SUMMARY | 2025-01-29 14:55 | XMS_ITS | Encounter Summary ---
Author Organization [facility] Address [address] [place] [address] Phone Care Team Providers Care Carbon Coater Machine Operator Name Role Phone Marybeth Mercado MD Primary Care Provider [phone] Encounter Details Date Type Department Care Team (Late st Contact Info) Description 01/20/2017 Conversion Encounter [facility] [address] [place] [address] Social History Tobacco Use Types Packs/Day Years [...] on filedocumented in this encounter Care Teams Carbon Coater Machine Operator Relationship Specialty Start Date End Date Marybeth Mercado MD [address] [place] [address] PCP - General 01/14/17 09/07/22 documented as of this encounter
--- OUTSIDE RECORDS SUMMARY | 2025-01-29 14:55 | XMS_ITS | Clinical Summary ---
Author Organization [facility] Address [address] [place] [phone] Phone Care Team Providers Care Family Medicine Chair Name Role Phone Unavailable Primary Care Provider [...] of Migraines, No family history of Sudden /[place] under age 55, No family history of [...] (1 of 2 - 13+ 2-dose series) 09/29/2009 HPV Vaccines (3 - 3-dose series) 03/04/2010 [...]
--- OUTSIDE RECORDS SUMMARY | 2025-01-29 14:55 | XMS_ITS | Encounter Summary ---
Author Organization [facility] Address [address] [place] [phone] Phone Care Team Providers Care Senior Chemical Process Engineer Name Role Phone Marybeth Mercado MD Primary Care Provider [phone] Encounter Details Date Type Department Care Team (Late st Contact Info) Description 02/21/2013 Documentation [facility] [place] Family Medicine [address] [place] [address] Family Medicine, Physician [address] [place], [place] [id number] Social History Tobacco Use Types Packs/Day Years [...] on filedocumented in this encounter Care Teams Senior Chemical Process Engineer Relationship Specialty Start Date End Date Marybeth Mercado MD [address] [place] [address] [place] [id number] PCP - General 01/14/17 09/07/22 documented as of this encounter
== END 2025-01-29 14:43 | disposition home or self-care (01) ==
LOC: HO.HWS 13:57
PROVIDERS: PCP Internal Medicine; Visit Provider Advanced Practice Midwife
DX: Z30.42 Encounter for surveillance of injectable contraceptive (principal)
CPT/HCPCS: 99499

== ENCOUNTER → 2025-01-29 13:57 | Outpatient (BNVA) | payer OTHER, SELFPAY | PROVIDERS: PCP Internal Medicine; Visit Provider Advanced Practice Midwife | DX: Z30.42 Encounter for surveillance of injectable contraceptive (principal) | CPT/HCPCS: 96372; J1050 ==

== ENCOUNTER 2025-03-05 15:17 | Outpatient (REF) | payer OTHER, SELFPAY ==
[2025-03-05 17:13] LABS: Hematocrit 41.7 % (37.0-47.0); Hemoglobin 14.2 g/dl (12.0-16.0); Mean Corpuscular HGB Conc 34.1 g/dl (31.0-35.0); Mean Corpuscular Hemoglobin 30.7 pg (27.0-33.0); Mean Corpuscular Volume 90.3 fL (80.0-98.0); NRBC Abs Auto 0.000 X10*3/uL (0.0-0.012); NRBC Pct Auto 0.0 /100WBC (0.0-0.2); Platelet Count 364 X10*3/uL (160-400); Red Blood Count 4.62 X10*6/uL (4.20-5.50); White Blood Count 8.0 X10*3/uL (4.8-10.8)
[2025-03-05 17:53] LABS: Alanine Aminotransferase 19 U/L (0-31); Albumin Level 4.6 g/dL (3.5-5.0); Alkaline Phosphatase 65 U/L (39-117); Anion Gap 11 (12-20); Aspartate Amino Transferase 23 U/L (5-31); Blood Urea Nitrogen 9 mg/dL (9-16); Calcium 9.2 mg/dL (8.4-10.2); Carbon Dioxide 24 mmol/L (22-29); Chloride 109 mmol/L (96-108); Estimated Glomerular Filt Rate > 60; Potassium 3.9 mmol/L (3.3-5.1); Sodium 140 mmol/L (135-145); Total Protein 7.7 g/dL (6.5-8.0)
[2025-03-05 17:55] LABS: Ferritin 25 ng/mL (10-122)
[2025-03-06 04:59] LABS: Syphilis Screen Nonreactive (Nonreactive)
[2025-03-06 05:35] LABS: HIV Num 1 0.05 S/CO (0.00-0.99); ~HepC Num1 0.09 S/CO (0.00-0.79); ~Hepatitis C Antibody Nonreactive (Nonreactive)
[2025-03-06 07:29] LABS: Lyme Blot 2.18 index
[2025-03-06 17:53] LABS: Anti Nuclear Antibody Screen NEGATIVE (NEGATIVE)
[2025-03-11 13:01] LABS: 39KD (IgG) Band NON-REACTIVE; 41KD (IgG) Band REACTIVE; Lyme Abs Screen POSITIVE; Lyme IgG Blot Interp NEGATIVE (NEGATIVE); Lyme IgM Blot Interp NEGATIVE (NEGATIVE)
== END 2025-03-05 15:18 | disposition home or self-care (01) ==
LOC: HO.LAB 15:17
PROVIDERS: PCP Internal Medicine; Visit Provider Physician Assistant Medical
DX: F32.9 Major depressive disorder, single episode, unspecified (principal); M79.10 Myalgia, unspecified site; R53.83 Other fatigue; N92.6 Irregular menstruation, unspecified; R53.82 Chronic fatigue, unspecified; A69.20 Lyme disease, unspecified; Z79.899 Other long term (current) drug therapy
CPT/HCPCS: 36415; 80053; 82728; 84443; 85027; 85652; 86038; 86141; 86617; 86618; 86780; 86803; 87389

== ENCOUNTER 2025-03-05 15:17 | Outpatient (AMB) | payer OTHER, SELFPAY ==
[2025-03-05 10:08] VITALS: BP 118/70; PULSE 81; TEMP 36.2; O2SAT 97; BMI 24.9
--- NOTE | 2025-03-05 10:08 | MHC.PC.OV ---
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 Hand Required: No Accompanied by: Self / Same As Patient Allergies cat dander (CATS) Allergy (Mild, Verified 03/05/25 10:08) ITCHING Penicillins Adverse Reaction (Mild, Verified 03/05/25 10:08) motion sickness codeine (CODEINE) Adverse Reaction (Unknown, Verified 03/05/25 10:08) NAUSEA Codeine Adverse Reaction (Unknown, Uncoded 11/17/23 14:34) nausea and vomiting Medication List - Last Reconciled 03/05/25 by CHENG Anthony bupropion HCl SR (Wellbutrin SR) 150 mg PO DAILY bupropion HCl XL 300 mg PO QAM fexofenadine (Gregoria Hives) 180 mg PO DAILY medroxyprogesterone (Depo-Provera) 150 mg IM Q12W Tobacco use date assessed: 03/05/25 Dental Screening Dental Screen Date: 03/05/25 Did you have a dental visit in the last 12 months?: Yes Did you have a dental problem in the last 6 months where you did not have access to dental care?: No HPI HPI Comments History of Present Illness Details The patient is a 35-year-old female with MDD and migraines presenting with fatigue and musculoskeletal pain. She reports persistent tiredness despite adequate sleep, often requiring daytime naps, and sometimes sleeping up to 14 hours without feeling rested. This fatigue has been ongoing, with no significant improvement noted. The patient was diagnosed with Lyme disease, confirmed by blood tests, and completed a course of antibiotics. Despite treatment, she continues to experience fatigue and occasional musculoskeletal pain, particularly in her arms and shoulders. She has not experienced the characteristic bullseye rash associated with Lyme disease. She has a history of depression, managed with bupropion 150mg. Initially, the medication was effective, but she reports a recurrence of depressive symptoms. Consideration is being given to increasing the dosage to better manage these symptoms. The patient started Depo-Provera in October and has experienced daily spotting since then. She is contemplating discontinuing this contraceptive method due to persistent menstrual irregularities. Patient was informed and verbally consented to the use of an ambient scribe for clinic note documentation during this visit. . [facility] Medical History (Updated 03/05/25 @ 17:01 by CHENG Anthony) Adopted Body aches Fatigue History of abnormal cervical Pap smear Irregular menses Kidney stone Lyme disease MDD (major depressive disorder) Migraine without aura Myalgia No active medical problems Surgical History H/O LEEP History of hernia surgery Family History (Updated 03/05/25 @ 15:35 by Kim Garcia MA) Mother No problems noted. Father No problems noted. 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 1. Little interest or pleasure in doing things: not at all 2. Feeling down, depressed, or hopeless: several days 3. Trouble falling or staying asleep, or sleeping too much: nearly every day (sleeping too much) 4. Feeling tired or having little energy: nearly every day 5. Poor appetite or overeating: not at all 6. Feeling bad about yourself - or that you are a failure or have let yourself or your family down: not at all 7. Trouble concentrating on things, such as reading the newspaper or watching television: not at all 8. Moving or speaking so slowly that other people could have noticed. Or the opposite - being so fidgety or restless that you have been moving around a lot more than usual: not at all 9. Thoughts that you would be better off or of hurting yourself in some way: not at all Total score: 7 Depression Screening Interpretation: Positive Depression Screening Follow-up: Change in Medication Depression Screening Done: Yes Source: Developed by Drs. Abundio Arora, Loida Puentes, Garrett Sorensen and colleagues, with an educational michael from [employer]. Thrive Questionnaire Date Thrive assessed: 03/05/25 I am a: Patient Within the past 12 months, did the food you bought not last and you didn't have the money to get more?: Never true Within the past 12 months, did you worry whether your food would run out before you got money to buy more?: Never true Do you have trouble paying for medicines?: No Do you have trouble getting transportation to medical appointments?: No Do you have trouble paying your heating and electricity bill?: No Do you have trouble taking care of your child, family member or friend?: No Do you have trouble with day-to-day activities such as bathing, preparing meals, shopping, managing finances, etc.?: No Are you currently unemployed and looking for a job?: No Are you interested in more education?: No THRIVE Score: 0 AUDIT C Alcohol Use Questionnaire (AUDIT-C) 1. How often do you have a drink containing alcohol?: Monthly or less 2. How many drinks containing alcohol do you have on a typical day when you are drinking?: 1 or 2 3. How often do you have six or more drinks on one occasion?: Less than monthly Total Score: 2 HUYEN-7 AMB Questionnaire HUYEN-7 Date HUYEN - 7 assessed: 03/05/25 Feeling nervous, anxious, or on edge: 0 = Not at all Not being able to stop or control worryin = Not at all Worrying too much about different things: 0 = Not at all Trouble relaxin = Not at all Being so restless that it is hard to sit still: 0 = Not at all Becoming easily annoyed or irritable: 0 = Not at all Feeling afraid as if something awful might happen: 0 = Not at all Total HUYEN-7 score (0-4 normal; 5-9 mild; 10-14 moderate; 15-21 severe): 0 Source: Developed by Drs. Aubndio Arora, Garrett Juarez and colleagues, with an educational michael from [employer]. Review of Systems Const Details: CONSTITUTIONAL Reports fatigue despite adequate sleep, occasional daytime naps, and sleeping up to 14 hours without feeling rested. HEAD/NECK Negative RESPIRATORY Negative CARDIOVASCULAR Negative GENITOURINARY Reports daily spotting since starting Depo-Provera in October MUSCULOSKELETAL Reports occasional pain in arms and shoulders. NEUROLOGICAL Negative PSYCHIATRIC Reports recurrence of depressive symptoms despite initial improvement with bupropion. Physical exam (Primary Care) Vital Signs: Last Vital Signs Temp 97.2 F 03/05/25 10:08 Pulse 81 03/05/25 10:08 BP 118/70 03/05/25 10:08 Pulse Ox 97 03/05/25 10:08 Oxygen Delivery Method Room Air 03/05/25 10:08 BMI result Body Mass Index 24.9 GENERAL Well developed, Well nourished, in no apparent distress HEENT Head-Normocephalic Neck- Supple, No lymphadenopathy, thyroid WNL RESPIRATORY Normal I:E, Clear to auscultation CARDIOVASCULAR Regular, rate and rhythm, No murmurs or rubs MUSCULOSKELETAL Back- nontender Joints- no pain swelling or deformity NEUROLOGICAL Gait normal PSYCHIATRIC Oriented to person, place and time Mood and affect depressed Appearance WNL Speech WNL Thought processes WNL Tobacco/Smoking Status: Tobacco use Status Tobacco use date assessed 03/05/25 03/05/25 10:09 Patient Tobacco Use Status Never used Tobacco 03/05/25 10:09 e-Cigarette/Vaping Use Never Used 03/05/25 10:09 PHQ-9: PHQ-9 Score PHQ-9: Total score 7 03/05/25 15:36 Depression Screening Interpretation: Positive Depression Screening Follow-up: Change in Medication Thrive Assessment: Date of Thrive Assessment Date Thrive assessed 03/05/25 03/05/25 10:09 Coding Level of Care Code Established Pt Est Pt Level 4 (23509) Patient Type Established Diagnoses MDD (major depressive disorder) F32.9 Irregular menses N92.6 Myalgia M79.10 Chronic fatigue R53.82 Fatigue type: chronic, unspecified Lyme disease A69.20 Time Spent (min) 30 Comment Time spent on chart review, medication reconciliation, H&P, Patient education and orders Assessment & Plan Assessment & Plan (1) MDD (major depressive disorder): Code(s): F32.9 - Major depressive disorder, single episode, unspecified Category: Medical Plan: The patient is experiencing a recurrence of depressive symptoms despite initial improvement with bupropion. The dosage of bupropion will be increased to 300 mg once daily to better manage symptoms. Patient to follow up in 3-4 weeks or sooner if symptoms persist or worsen. (2) Irregular menses: Code(s): N92.6 - Irregular menstruation, unspecified Category: Medical Plan: The patient reports daily spotting since starting Depo-Provera in October. It is recommended to continue with one more injection to see if symptoms resolve, with consideration to switch if irregularities persist. (3) Myalgia: Code(s): M79.10 - Myalgia, unspecified site Category: Medical Plan: The patient reports musculoskeletal pain, particularly in the arms and shoulders. Blood work will be conducted to rule out inflammatory or connective tissue disorders. Patient to follow up in 3-4 weeks or sooner if symptoms persist or worsen. (4) Fatigue: Code(s): R53.83 - Other fatigue Category: Medical Qualifiers: Fatigue type: chronic, unspecified Qualified Code(s): R53.82 - Chronic fatigue, unspecified Plan: The patient reports persistent fatigue despite adequate sleep, requiring further investigation. Blood work will be conducted to rule out thyroid dysfunction and other potential causes. Patient to follow up in 3-4 weeks or sooner if symptoms persist or worsen. (5) Lyme disease: Code(s): A69.20 - Lyme disease, unspecified Category: Medical Plan: The patient was previously diagnosed with Lyme disease and completed a course of antibiotics. Further Lyme titers will be conducted to assess current status and rule out chronic Lyme disease. Plan I discussed with the patient the potential causes of her fatigue, including the possibility of thyroid dysfunction and the need for further blood work to rule out other conditions. We reviewed her history of Lyme disease and the plan to conduct further Lyme titers to assess her current status. I explained the plan to increase her bupropion dosage to manage her depressive symptoms more effectively. We also discussed the side effects of Depo-Provera and the recommendation to continue with one more injection before considering a switch if irregularities persist. Orders: Orders Comprehensive Met. Panel Today F32.9 - Major depressive disorder, single episode, unspecified, M79.10 - Myalgia, unspecified site, R53.83 - Other fatigue CRP High Sensitivity Today F32.9 - Major depressive disorder, single episode, unspecified, M79.10 - Myalgia, unspecified site, R53.83 - Other fatigue GINA Reflex Titer and Pattern Today F32.9 - Major depressive disorder, single episode, unspecified, M79.10 - Myalgia, unspecified site, R53.83 - Other fatigue Lyme IgG/IgM w/reflex to WB Today F32.9 - Major depressive disorder, single episode, unspecified, M79.10 - Myalgia, unspecified site, R53.83 - Other fatigue Complete Blood Count no Diff Today F32.9 - Major depressive disorder, single episode, unspecified, M79.10 - Myalgia, unspecified site, R53.83 - Other fatigue TSH reflex Free T4 Today F32.9 - Major depressive disorder, single episode, unspecified, M79.10 - Myalgia, unspecified site, R53.83 - Other fatigue Ferritin Today F32.9 - Major depressive disorder, single episode, unspecified, M79.10 - Myalgia, unspecified site, R53.83 - Other fatigue Syphilis Screen Today F32.9 - Major depressive disorder, single episode, unspecified, M79.10 - Myalgia, unspecified site, R53.83 - Other fatigue Hepatitis C Antibody Reflex Today F32.9 - Major depressive disorder, single episode, unspecified, M79.10 - Myalgia, unspecified site, R53.83 - Other fatigue HIV Ab/Ag Today F32.9 - Major depressive disorder, single episode, unspecified, M79.10 - Myalgia, unspecified site, R53.83 - Other fatigue Erythrocyte Sedimentation Rate Today F32.9 - Major depressive disorder, single episode, unspecified, M79.10 - Myalgia, unspecified site, R53.83 - Other fatigue Medications: New bupropion HCl XL DOSAGE ADJUSTMENT 300 mg PO QAM 90 tabs 0RF depression Patient Instructions: - Schedule blood work at the hospital to rule out thyroid dysfunction and other conditions. - Continue with the current Depo-Provera schedule and monitor for changes in menstrual irregularities. - Increase bupropion dosage to 300 mg once daily as prescribed. - Follow up in three to four weeks to review lab results and assess treatment progress.
--- OUTSIDE RECORDS SUMMARY | 2025-03-05 16:35 | XMS_ITS | Encounter Summary ---
Author Organization [facility] Address [address] [place] [address] Phone Care Team Providers Care Meteorology Instructor Name Role Phone Marybeth Mercado MD Primary Care Provider [phone] Encounter Details Date Type Department Care Team (Late st Contact Info) Description 01/20/2017 Conversion Encounter [facility] [address] [place] [address] Social History Tobacco Use Types Packs/Day Years [...] on filedocumented in this encounter Care Teams Meteorology Instructor Relationship Specialty Start Date End Date Marybeth Mercado MD [address] [place] [address] PCP - General 01/14/17 09/07/22 documented as of this encounter
--- OUTSIDE RECORDS SUMMARY | 2025-03-05 16:35 | XMS_ITS | Encounter Summary ---
Author Organization [facility] Address [address] [place] [id number] Phone Care Team Providers Care Construction Or Leak Gang Laborer Name Role Phone Marybeth Mercado MD Primary Care Provider [phone] Encounter Details Date Type Department Care Team (Late st Contact Info) Description 02/21/2013 Documentation [facility] [place] Family Medicine [address] [place] [address] Family Medicine, Physician [address] [place], [place] [id number] Social History Tobacco Use Types Packs/Day Years [...] on filedocumented in this encounter Care Teams Construction Or Leak Gang Laborer Relationship Specialty Start Date End Date Marybeth Mercado MD [address] [place] [address] [place] [address] PCP - General 01/14/17 09/07/22 documented as of this encounter
--- OUTSIDE RECORDS SUMMARY | 2025-03-05 16:35 | XMS_ITS | Clinical Summary ---
Author Organization [facility] Address [address] [place] [id number] Phone Care Team Providers Care Linotypist Name Role Phone Unavailable Primary Care Provider [...] of Migraines, No family history of Sudden /[place] under age 55, No family history of [...] 05/05/1999, Additional history exists Influenza Vaccines (#1) 2025 COVID-19 Vaccine ( season) 2025 HIB Vaccines Completed 05/05/1990 MMR Vaccines [...]
== END 2025-03-05 15:53 | disposition home or self-care (01) ==
LOC: HO.HMCHD 15:17
PROVIDERS: PCP Internal Medicine; Visit Provider Physician Assistant Medical
DX: M79.10 Myalgia, unspecified site (principal); N92.6 Irregular menstruation, unspecified; F32.9 Major depressive disorder, single episode, unspecified; R53.82 Chronic fatigue, unspecified; A69.20 Lyme disease, unspecified

== ENCOUNTER 2025-04-03 15:18 | Outpatient (AMB) | payer OTHER, SELFPAY ==
[2025-04-03 15:35] VITALS: BP 120/74; PULSE 91; TEMP 36.2; O2SAT 99; BMI 25.4
--- NOTE | 2025-04-03 15:35 | A.OFFPC_ITS ---
Vital Signs 04/03/25 15:35 Height 4 ft 9 in Weight 117 lb 4 oz BMI 25.4 BP 120/74 Blood Pressure Location Lt brachial Position Sitting Pulse 91 Pulse Source Pulse Oximeter Temp 97.2 F Temp Source Temporal Artery Scan Pulse Oximetry (%) 99 Oxygen Delivery Method Room Air Intake Visit Reasons: 4 weeks follow up Maths Tutor Required: No Accompanied by: Self / Same As Patient Allergies cat dander (CATS) Allergy (Mild, Verified 04/03/25 15:35) ITCHING Penicillins Adverse Reaction (Mild, Verified 04/03/25 15:35) motion sickness codeine (CODEINE) Adverse Reaction (Unknown, Verified 04/03/25 15:35) NAUSEA Codeine Adverse Reaction (Unknown, Uncoded 11/17/23 14:34) nausea and vomiting Medication List - Last Reconciled 04/03/25 by CHENG Anthony bupropion HCl SR (Wellbutrin SR) 150 mg PO DAILY bupropion HCl XL 300 mg PO QAM fexofenadine (Gregoria Hives) 180 mg PO DAILY medroxyprogesterone (Depo-Provera) 150 mg IM Q12W Tobacco use date assessed: 04/03/25 Dental Screening Dental Screen Date: 04/03/25 Did you have a dental visit in the last 12 months?: Yes Did you have a dental problem in the last 6 months where you did not have access to dental care?: No HPI HPI Comments History of Present Illness Details The patient is a 35-year-old female with MDD and migraines presenting for follow up of depression, fatigue, muscle pain and irregular uterine bleeding here for follow up. The patient reports experiencing depression, which may be contributing to her generalized pain and fatigue. She is currently taking bupropion at a dosage of 300 mg, which she plans to switch to nighttime dosing to mitigate side effects such as dizziness and lightheadedness. She feels the medication dosage increase has been helping some. Her labs were all essentially normal. The patient has been experiencing irregular uterine bleeding while on Depo- Provera, prompting a visit to her PROCESS CONTROL SPECIALIST for further evaluation. She also reports intermittent itching, which she finds uncomfortable. She has an appointment with DRAW PRESS OPERATOR on 04/05 The patient has expressed interest in increasing her physical activity to help manage her symptoms, including fatigue and generalized pain. She plans to start exercising by going to the gym, setting small, manageable goals to gradually increase her activity level. Patient was informed and verbally consented to the use of an ambient scribe for clinic note documentation during this visit. [facility] Medical History Lyme disease Irregular menses MDD (major depressive disorder) Myalgia Fatigue Body aches Kidney stone Adopted Migraine without aura History of abnormal cervical Pap smear No active medical problems Surgical History H/O LEEP History of hernia surgery Family History Mother No problems noted. Father No problems noted. 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 1. Little interest or pleasure in doing things: not at all 2. Feeling down, depressed, or hopeless: not at all 3. Trouble falling or staying asleep, or sleeping too much: not at all 4. Feeling tired or having little energy: not at all 5. Poor appetite or overeating: not at all 6. Feeling bad about yourself - or that you are a failure or have let yourself or your family down: not at all 7. Trouble concentrating on things, such as reading the newspaper or watching television: not at all 8. Moving or speaking so slowly that other people could have noticed. Or the opposite - being so fidgety or restless that you have been moving around a lot more than usual: not at all 9. Thoughts that you would be better off or of hurting yourself in some way: not at all Total score: 0 Depression Screening Interpretation: Negative Depression Screening Done: Yes Source: Developed by Drs. Abundio Arora, Loida Puentes, Garrett Sorensen and colleagues, with an educational michael from [employer]. Thrive Questionnaire Date Thrive assessed: 04/03/25 I am a: Patient Within the past 12 months, did the food you bought not last and you didn't have the money to get more?: Never true Within the past 12 months, did you worry whether your food would run out before you got money to buy more?: Never true Do you have trouble paying for medicines?: No Do you have trouble getting transportation to medical appointments?: No Do you have trouble paying your heating and electricity bill?: No Do you have trouble taking care of your child, family member or friend?: No Do you have trouble with day-to-day activities such as bathing, preparing meals, shopping, managing finances, etc.?: No Are you currently unemployed and looking for a job?: No Are you interested in more education?: No THRIVE Score: 0 AUDIT C Alcohol Use Questionnaire (AUDIT-C) 1. How often do you have a drink containing alcohol?: Monthly or less 2. How many drinks containing alcohol do you have on a typical day when you are drinking?: 1 or 2 3. How often do you have six or more drinks on one occasion?: Less than monthly Total Score: 2 HUYEN-7 AMB Questionnaire HUYEN-7 Date HUYEN - 7 assessed: 04/03/25 Feeling nervous, anxious, or on edge: 0 = Not at all Not being able to stop or control worryin = Not at all Worrying too much about different things: 0 = Not at all Trouble relaxin = Not at all Being so restless that it is hard to sit still: 0 = Not at all Becoming easily annoyed or irritable: 0 = Not at all Feeling afraid as if something awful might happen: 0 = Not at all Total HUYEN-7 score (0-4 normal; 5-9 mild; 10-14 moderate; 15-21 severe): 0 Source: Developed by Drs. Abundio Arora, Loida Puentes, Garrett Sorensen and colleagues, with an educational michael from [employer]. Review of Systems Narrative CONSTITUTIONAL Fatigue HEAD/NECK Negative RESPIRATORY Negative CARDIOVASCULAR Negative GASTROINTESTINAL Negative MUSCULOSKELETAL muscle pain Joint pain NEUROLOGICAL Negative PSYCHIATRIC Depression Physical exam (Primary Care) Vital Signs: Last Vital Signs Temp 97.2 F 04/03/25 15:35 Pulse 91 04/03/25 15:35 BP 120/74 04/03/25 15:35 Pulse Ox 99 04/03/25 15:35 Oxygen Delivery Method Room Air 04/03/25 15:35 BMI result Body Mass Index 25.4 GENERAL Well developed, Well nourished, in no apparent distress HEENT Head-Normocephalic Neck- Supple, No lymphadenopathy, thyroid WNL RESPIRATORY Normal I:E, Clear to auscultation CARDIOVASCULAR Regular, rate and rhythm, No murmurs or rubs MUSCULOSKELETAL Joints- no swelling or deformity NEUROLOGICAL Gait normal PSYCHIATRIC Oriented to person, place and time Mood and affect- depressed Appearance WNL Speech WNL Thought processes WNL Tobacco/Smoking Status: Tobacco use Status Tobacco use date assessed 04/03/25 04/03/25 15:40 Patient Tobacco Use Status Never used Tobacco 04/03/25 15:37 e-Cigarette/Vaping Use Never Used 04/03/25 15:37 PHQ-9: PHQ-9 Score PHQ-9: Total score 0 04/03/25 15:40 Depression Screening Interpretation: Negative Thrive Assessment: Date of Thrive Assessment Date Thrive assessed 04/03/25 04/03/25 15:40 Coding Level of Care Code Established Pt Est Pt Level 4 (18595) Patient Type Established Diagnoses MDD (major depressive disorder) F32.9 Myalgia M79.10 Irregular menses N92.6 Chronic fatigue R53.82 Fatigue type: chronic, unspecified Time Spent (min) 30 Comment Time spent on chart review, H&P, patient education and follow up Assessment & Plan Assessment & Plan (1) MDD (major depressive disorder): Code(s): F32.9 - Major depressive disorder, single episode, unspecified Category: Medical Plan: The patient will continue bupropion at 300 mg, switching to nighttime dosing to reduce side effects such as dizziness and lightheadedness. A follow-up is planned in three to four weeks to assess the effectiveness of the current regimen and consider additional medication if symptoms persist. (2) Myalgia: Code(s): M79.10 - Myalgia, unspecified site Category: Medical Plan: The patient is advised to continue monitoring symptoms and consider exercise as a potential method to manage pain. (3) Irregular menses: Code(s): N92.6 - Irregular menstruation, unspecified Category: Medical Plan: The patient is advised to consult with her PROCESS CONTROL SPECIALIST regarding the irregular bleeding while on Depo-Provera, as it may not be the optimal contraceptive method for her. (4) Fatigue: Code(s): R53.83 - Other fatigue Category: Medical Qualifiers: Fatigue type: chronic, unspecified Qualified Code(s): R53.82 - Chronic fatigue, unspecified Plan: The patient is encouraged to increase physical activity, as exercise may help alleviate fatigue and improve energy levels. Plan I discussed with the patient the continuation of bupropion at 300 mg, suggesting a switch to nighttime dosing to minimize side effects. We also talked about the importance of consulting her PROCESS CONTROL SPECIALIST regarding her irregular uterine bleeding and itching, as Depo-Provera may not be suitable for her. I emphasized the benefits of regular exercise in managing fatigue and generalized pain, and encouraged setting small, achievable goals. Patient Instructions: - Continue taking bupropion 300 mg, switch to nighttime dosing. - Schedule a follow-up appointment in three to four weeks. - Consult PROCESS CONTROL SPECIALIST regarding irregular bleeding and itching. - Start a regular exercise routine, setting small, achievable goals.
== END 2025-04-03 16:12 | disposition home or self-care (01) ==
LOC: HO.HMCHD 15:19
PROVIDERS: PCP Physician Assistant Medical; Visit Provider Physician Assistant Medical
DX: F32.9 Major depressive disorder, single episode, unspecified (principal); M79.10 Myalgia, unspecified site; N92.6 Irregular menstruation, unspecified; R53.82 Chronic fatigue, unspecified

== ENCOUNTER 2025-04-04 15:05 | Outpatient (AMB) | payer OTHER, SELFPAY ==
--- NOTE | 2025-04-04 15:08 | A.OFFVIS_ITS ---
Vital Signs 04/04/25 15:11 Height 4 ft 9 in Weight 117 lb BMI 25.3 BP 120/72 Intake Visit Reasons: vaginal irritation Process Plant Operator: Process Plant Operator Present (Michelle) Allergies cat dander (CATS) Allergy (Mild, Verified 04/04/25 15:10) ITCHING Penicillins Adverse Reaction (Mild, Verified 04/04/25 15:10) motion sickness codeine (CODEINE) Adverse Reaction (Unknown, Verified 04/04/25 15:10) NAUSEA Codeine Adverse Reaction (Unknown, Uncoded 11/17/23 14:34) nausea and vomiting HPI Comments Details: Patient is here today with concerns for vaginal infection-itching x 2d ago and burning with urination x1 day. She denies any frequency, abnormal discharge or odors. She had tried [id number] Monistat cream previously. She has had some bleeding while on Depo-Provera daily since initiate Depo in October, off only a few days. Prior to Depo she was bleeding twice a month. Next Depo injection April 22. UPT is negative. [facility] Medical History (Updated 04/04/25 @ 15:47 by Geovanna Wiggins CNM) Abnormal uterine bleeding (AUB) Lyme disease MDD (major depressive disorder) Myalgia Fatigue Body aches Kidney stone Adopted Migraine without aura History of abnormal cervical Pap smear No active medical problems Surgical History H/O LEEP History of hernia surgery Family History Mother No problems noted. Father No problems noted. 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 Sexual orientation: Straight/Heterosexual Gender identity: Female Cognitive needs: No Hearing needs: No Vision needs: No Female Reproductive History Menstrual Age of Menarche: 11 Review of Systems Const All systems reviewed & are unremarkable except as noted in HPI and below Physical Exam Vital Signs: Last Vital Signs BP 120/72 04/04/25 15:11 BMI result Body Mass Index 25.3 Const General: cooperative, healthy appearing and no acute distress Orientation/consciousness: patient oriented x3 GI Inspection: Yes normal to inspection Palpation (GI): Soft to palpation and Other GI palpation findings present (Nontender) Rectal Exam - Female: visual inspection normal General: Yes bladder normal to palpation External Female Exam: normal appearance of the urethra Speculum Exam - Vagina: normal appearance of the vagina, normal palpation, normal vaginal discharge and vaginal bleeding Speculum Exam - Cervix: normal appearance of the cervix, normal palpation and Cervical lesion present (Vascular appearing lesion at 07:00) Bimanual exam- vagina & uterus: normal bimanual exam, normal palpation, uterine size normal, bladder normal to palpation, normal palpation, uterine shape normal and non-tender Bimanual Exam- Adnexa, other: normal adnexae OB/external & speculum: vaginal bleeding Neuro General: patient oriented x3 Results AMB Test Urine AMB Test Urine Negative Last Edit by SHERINE Tracy on 04/04/25 15:23 AMB Urinalysis, Automated UA Leukoctes 2 Gabriela/uL Last Edit by SHERINE Tracy on 04/04/25 15:23 UA Nitrite Negative Last Edit by SHERINE Tracy on 04/04/25 15:23 UA Urobilinogen 0 mg/dL Last Edit by SHERINE Tracy on 04/04/25 15:2 3 UA Protein 0 mg/dL Last Edit by SHERINE Tracy on 04/04/25 15:23 UA pH 6.0 Last Edit by SHERINE Tracy on 04/04/25 15:23 UA Blood 3 Curt/uL Last Edit by SHERINE Tracy on 04/04/25 15:23 UA Specific [place] 1.010 Last Edit by SHERINE Tracy on 04/04/25 15:23 UA Ketone Negative Last Edit by SHERINE Tracy on 04/04/25 15:23 UA Bilirubin 0 mg/dL Last Edit by SHERINE Tracy on 04/04/25 15:23 UA Glucose 0 mg/dL Last Edit by SHERINE Tracy on 04/04/25 15:23 Assessment & Plan Assessment & Plan (1) Abnormal uterine bleeding (AUB): Code(s): N93.9 - Abnormal uterine and vaginal bleeding, unspecified Category: Medical Plan: Plan pelvic ultrasound, GC chlamydia and BV panel obtained today. Discussed endometrial biopsy procedure. (2) Abnormal cervix finding: Code(s): N88.9 - Noninflammatory disorder of cervix uteri, unspecified Category: Medical Plan: Recommended colposcopy with Dr. Alvarado to evaluate vascular cervical lesion. The patient expressed understanding and agreement with the plan of care. All of her questions and concerns were addressed to the best of my ability. (3) Vulvar irritation: Code(s): N90.89 - Other specified noninflammatory disorders of vulva and perineum Plan Await results from BV panel, GC chlamydia and urine culture. The patient expres sed understanding and agreement with the plan of care. All of her questions and concerns were addressed to the best of my ability. This note is constructed using voice recognition software. While every effort has been made to ensure accuracy, leather belt shaper errors may have been included. Orders: Orders AMB HCG Urine Test Today Z32.02 - Encounter for test, result negative US pelvic and transvaginal Today N93.9 - Abnormal uterine and vaginal bleeding, unspecified AMB Urinalysis Automated Today N94.9 - Unspecified condition associated with female genital organs and menstrual cycle Urine Culture Today R31.29 - Other microscopic hematuria Bacterial Vaginosis Panel Today N93.9 - Abnormal uterine and vaginal bleeding, unspecified CT NG by PCR Vag/Cerv Today N93.9 - Abnormal uterine and vaginal bleeding, unspecified Coding Diagnoses Abnormal uterine bleeding (AUB) N93.9 Abnormal cervix finding N88.9 Vulvar irritation N90.89
[2025-04-04 15:11] VITALS: BP 120/72; BMI 25.3
--- OUTSIDE RECORDS SUMMARY | 2025-04-04 17:55 | XMS_ITS | Clinical Summary ---
Author Organization [facility] Address [address] [place] [id number] Phone Care Team Providers Care Contracts Law Professor Name Role Phone Unavailable Primary Care Provider [...] of Migraines, No family history of Sudden /SC under age 55, No family history of [...]
--- OUTSIDE RECORDS SUMMARY | 2025-04-04 17:55 | XMS_ITS | Encounter Summary ---
Author Organization [facility] Address [address] [place] [id number] Phone Care Team Providers Care Electronic Pagination System Operator Name Role Phone Marybeth Mercado MD Primary Care Provider [phone] Encounter Details Date Type Department Care Team (Late st Contact Info) Description 02/21/2013 Documentation [facility] [place] [facility] [address] [place] [address] Family Medicine, Physician [address] [place], [place] [address] Social History Tobacco Use Types Packs/Day Years [...] on filedocumented in this encounter Care Teams Electronic Pagination System Operator Relationship Specialty Start Date End Date Marybeth Mercado MD [address] [place] [address] PETERSON Rai [id number] PCP - General 01/14/17 09/07/22 documented as of this encounter
--- OUTSIDE RECORDS SUMMARY | 2025-04-04 17:55 | XMS_ITS | Encounter Summary ---
Author Organization [facility] Address [address] [place] [address] Phone Care Team Providers Care Care Connector Name Role Phone Marybeth Mercado MD Primary Care Provider [phone] Encounter Details Date Type Department Care Team (Late st Contact Info) Description 01/20/2017 Conversion Encounter [facility] [place] [address] [place] [address] Social History Tobacco Use Types Packs/Day Years [...] on filedocumented in this encounter Care Teams Care Connector Relationship Specialty Start Date End Date Marybeth Mercado MD [address] [place] [address] PCP - General 01/14/17 09/07/22 documented as of this encounter
== END 2025-04-04 16:17 | disposition home or self-care (01) ==
LOC: HO.HWS 15:06
PROVIDERS: PCP Physician Assistant Medical; Visit Provider Advanced Practice Midwife
DX: Z32.02 Encounter for pregnancy test, result negative (principal); N94.9 Unspecified condition associated with female genital organs and menstrual cycle

== ENCOUNTER 2025-04-04 15:05 | Outpatient (REF) | payer OTHER, SELFPAY ==
[2025-04-05 02:20] LABS: Bacterial Vaginosis PCR NEGATIVE (Negative); Candida Group PCR DETECTED (Not Detect); Candida glab krusei PCR NOT DETECTED (Not Detect); Trichomonas vaginalis PCR NOT DETECTED (Not Detect)
[2025-04-05 02:51] LABS: CT PCR NOT DETECTED (Not Detect.); NG PCR NOT DETECTED (Not Detect.)
== END 2025-04-04 15:06 | disposition home or self-care (01) ==
LOC: HO.LAB 15:05
PROVIDERS: PCP Physician Assistant Medical; Visit Provider Advanced Practice Midwife
DX: N90.89 Other specified noninflammatory disorders of vulva and perineum (principal); N88.9 Noninflammatory disorder of cervix uteri, unspecified; N93.9 Abnormal uterine and vaginal bleeding, unspecified; N94.9 Unspecified condition associated with female genital organs and menstrual cycle; Z32.02 Encounter for pregnancy test, result negative; Z20.2 Contact with and (suspected) exposure to infections with a predominantly sexual mode of transmission
CPT/HCPCS: 81003; 81025; 81515; 87086; 87491; 87591

== ENCOUNTER 2025-04-04 15:20 | Outpatient (REF) | payer OTHER, SELFPAY | END 2025-04-04 15:21 | disposition home or self-care (01) | LOC: HO.LNP 15:20 | PROVIDERS: Visit Provider Advanced Practice Midwife | DX: Z13.89 Encounter for screening for other disorder (principal) ==

== ENCOUNTER 2025-04-04 16:13 | Outpatient (REF) | payer OTHER, SELFPAY ==
--- NOTE | ~2025-04-04 | US_ITS ---
CLINICAL HISTORY: N93.9 - Abnormal uterine and vaginal bleeding, unspecified US pelvis transabdominal and transvaginal Comparison: US/GA/SR - US PELVIS - 11/24/23 16:43 EDT Findings: Transabdominal scanning performed for overall anatomy. Transvaginal scanning performed for additional detail. Visualization is mildly limited. Anteverted uterus is 8.4 cm length. There is poor definition of the endometrium. The neurodiagnostic technologist estimate of the endometrium at up to 2.2 cm in thickness, however this may be an overestimation of endometrial thickness. Possible small pocket of fluid within the endometrial canal or small endometrial cyst. There is relative fullness of the myometrium within the posterior uterine body with possible mass effect on the endometrium. This could potentially represent a poorly defined fibroid or an area of adenomyosis. Right ovary 2.5 x 1.3 x 1.3 cm. Left ovary 2.5 x 1.2 x 1.5 cm. Normal color Doppler of both ovaries. No free fluid. IMPRESSION: 1. Possible thickening of the endometrium not determined with certainty. 2. Relative fullness of the myometrium within the posterior uterine body with possible mass effect on the endometrium. Could consider a poorly defined submucosal fibroid or an area of adenomyosis. 3. Possible small focus of fluid within the endometrial canal or endometrial cyst. This document has been electronically signed by: Raina Lawson MD on 04/04/2025 18:15:09
== END 2025-04-04 16:14 | disposition home or self-care (01) ==
LOC: HO.US 16:13
PROVIDERS: Visit Provider Advanced Practice Midwife
DX: N93.9 Abnormal uterine and vaginal bleeding, unspecified (principal)
CPT/HCPCS: 76830; 76856

== ENCOUNTER → 2025-04-04 16:16 | Outpatient (BNV) | payer OTHER, SELFPAY | PROVIDERS: Visit Provider Radiology Diagnostic Radiology | DX: N93.9 Abnormal uterine and vaginal bleeding, unspecified (principal) | CPT/HCPCS: 76830; 76856 ==

== ENCOUNTER 2025-04-09 14:25 | Outpatient (AMB) | payer OTHER, SELFPAY ==
--- NOTE | 2025-04-09 14:27 | A.OFFVIS_ITS ---
Intake Visit Reasons: U/S Follow up Holter Technician: Holter Technician Present Allergies cat dander (CATS) Allergy (Mild, Verified 04/04/25 15:10) ITCHING Penicillins Adverse Reaction (Mild, Verified 04/04/25 15:10) motion sickness codeine (CODEINE) Adverse Reaction (Unknown, Verified 04/04/25 15:10) NAUSEA Codeine Adverse Reaction (Unknown, Uncoded 11/17/23 14:34) nausea and vomiting Is last menstrual period known: Yes HPI Comments Details: Patient is here today for a follow up pelvic ultrasound, history of persistent bleeding on Depo Provera. Prior to Depo-Provera she had bled twice a month. Culture results positive for Bindu. She has ongoing vulvar itching. [facility] Medical History Abnormal uterine bleeding (AUB) Lyme disease MDD (major depressive disorder) Myalgia Fatigue Body aches Kidney stone Adopted Migraine without aura History of abnormal cervical Pap smear No active medical problems Surgical History H/O LEEP History of hernia surgery Family History Mother No problems noted. Father No problems noted. 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 Sexual orientation: Straight/Heterosexual Gender identity: Female Cognitive needs: No Hearing needs: No Vision needs: No Female Reproductive History Menstrual Age of Menarche: 11 Review of Systems Const All systems reviewed & are unremarkable except as noted in HPI and below Endo Reports no additional complaints Physical Exam Const General: cooperative, healthy appearing and no acute distress Psych Appearance: well kempt Attitude: cooperative Thought process: Normal thought process present Results Reviewed Results Reviewed: [address] [address] Ultrasound Report Signed Patient: Tasha Swanson MR#: [id number] : 1990 Acct:[id number] Age/Sex: 35 / F ADM Date: 04/04/25 Loc: HO.US Attending Dr: Geovanna Wiggins CNM Ordering Physician: Geovanna Wiggins CNM Date of Service: 04/04/25 Procedure(s): US pelvic and transvaginal Accession Number(s): [id number] cc: Geovanna Wiggins CNM~ Reason for Exam: N93.9 - Abnormal uterine and vaginal bleeding, unspecified CLINICAL HISTORY: N93.9 - Abnormal uterine and vaginal bleeding, unspecified US pelvis transabdominal and transvaginal Comparison: US/SD/SR - US PELVIS - 11/24/23 16:43 EDT Findings: Transabdominal scanning performed for overall anatomy. Transvaginal scanning performed for additional detail. Visualization is mildly limited. Anteverted uterus is 8.4 cm length. There is poor definition of the endometrium. The lead cytogenetic technologist estimate of the endometrium at up to 2.2 cm in thickness, however this may be an overestimation of endometrial thickness. Possible small pocket of fluid within the endometrial canal or small endometrial cyst. There is relative fullness of the myometrium within the posterior uterine body with possible mass effect on the endometrium. This could potentially represent a poorly defined fibroid or an area of adenomyosis. Right ovary 2.5 x 1.3 x 1.3 cm. Left ovary 2.5 x 1.2 x 1.5 cm. Normal color Doppler of both ovaries. No free fluid. IMPRESSION: 1. Possible thickening of the endometrium not determined with certainty. 2. Relative fullness of the myometrium within the posterior uterine body with possible mass effect on the endometrium. Could consider a poorly defined submucosal fibroid or an area of adenomyosis. 3. Possible small focus of fluid within the endometrial canal or endometrial cyst. This document has been electronically signed by: Raina Lawson MD on 04/04/2025 18:15:09 Dictated By: Raina Lawson MD Signed By: <Electronically signed by Raina Lawson MD in OV> 04/04/251814 DD/ 14 TD/TT: 04/04/251814 Outpatient Therapist: Assessment & Plan Assessment & Plan (1) Abnormal uterine bleeding (AUB): Code(s): N93.9 - Abnormal uterine and vaginal bleeding, unspecified Category: Medical Plan: Plan hysteroscopy consult with Dr. Alvarado for further evaluation. Insert all questions (2) Irritation of vulva: Code(s): N90.89 - Other specified noninflammatory disorders of vulva and perineum Plan: Rx sent in for Bindu therapy. The patient expressed understanding and agreement with the plan of care. All of her questions and concerns were addressed to the best of my ability. (3) Abnormal finding on ultrasound: Code(s): R93.89 - Abnormal findings on diagnostic imaging of other specified body structures Plan Discussed: Ultrasound findings- IMPRESSION: 1. Possible thickening of the endometrium not determined with certainty. 2. Relative fullness of the myometrium within the posterior uterine body with possible mass effect on the endometrium. Could consider a poorly defined submucosal fibroid or an area of adenomyosis. 3. Possible small focus of fluid within the endometrial canal or endometrial cyst. Reviewed results, recommended consult with Dr. Alvarado for hysteroscopy. Has a appointment April 22 for colposcopy additional consult to be added same-day visit okayed per Dr. Alvarado. The patient expressed understanding and agreement with the plan of care. All of her questions and concerns were addressed to the best of my ability. This note is constructed using voice recognition software. While every effort has been made to ensure accuracy, van cdl driver errors may have been included. Medications: New fluconazole 150 mg PO ONCE 1 tab 1RF personal 1 day Coding Level of Care Code Est Pt Level 3 (91329) Diagnoses Abnormal uterine bleeding (AUB) N93.9 Irritation of vulva N90.89 Abnormal finding on ultrasound R93.89
--- OUTSIDE RECORDS SUMMARY | 2025-04-09 17:28 | XMS_ITS | Clinical Summary ---
Author Organization [facility] Address [address] [place] [address] Phone Care Team Providers Care Paving Supervisor Name Role Phone Unavailable Primary Care Provider [...] of Migraines, No family history of Sudden /[place] under age 55, No family history of [...]
--- OUTSIDE RECORDS SUMMARY | 2025-04-09 17:28 | XMS_ITS | Encounter Summary ---
Author Organization [facility] Address [address] [place] [address] Phone Care Team Providers Care Wood Tank Erector Name Role Phone Marybeth Mercado MD Primary Care Provider [phone] Encounter Details Date Type Department Care Team (Late st Contact Info) Description 02/21/2013 Documentation [facility] [place] [address] [place] [address] Family Medicine, Physician [address] [place], [place] [address] Social History Tobacco Use Types Packs/Day Years [...] on filedocumented in this encounter Care Teams Wood Tank Erector Relationship Specialty Start Date End Date Marybeth Mercado MD [address] [place] [address] [place] Rai [address] PCP - General 01/14/17 09/07/22 documented as of this encounter
--- OUTSIDE RECORDS SUMMARY | 2025-04-09 17:28 | XMS_ITS | Encounter Summary ---
Author Organization [facility] Address [address] [place] [address] Phone Care Team Providers Care Public Health Assistant Name Role Phone Marybeth Mercado MD Primary Care Provider [phone] Encounter Details Date Type Department Care Team (Late st Contact Info) Description 01/20/2017 Conversion Encounter [facility] [place] [address] [place] [address] Social History Tobacco Use Types Packs/Day Years [...] on filedocumented in this encounter Care Teams Public Health Assistant Relationship Specialty Start Date End Date Marybeth Mercado MD [address] [place] [address] PCP - General 01/14/17 09/07/22 documented as of this encounter
== END 2025-04-09 16:03 | disposition home or self-care (01) ==
LOC: HO.HWS 14:26
PROVIDERS: Visit Provider Advanced Practice Midwife
DX: N93.9 Abnormal uterine and vaginal bleeding, unspecified (principal); N90.89 Other specified noninflammatory disorders of vulva and perineum; R93.89 Abnormal findings on diagnostic imaging of other specified body structures
CPT/HCPCS: 99213

== ENCOUNTER 2025-04-22 14:19 | Outpatient (REF) | payer OTHER, SELFPAY ==
[2025-04-23 00:14] LABS: Bacterial Vaginosis PCR POSITIVE (Negative); Candida Group PCR DETECTED (Not Detect); Candida glab krusei PCR NOT DETECTED (Not Detect); Trichomonas vaginalis PCR NOT DETECTED (Not Detect)
[2025-04-23 00:44] LABS: CT PCR NOT DETECTED (Not Detect.); NG PCR NOT DETECTED (Not Detect.)
--- OUTSIDE RECORDS SUMMARY | 2025-04-23 05:32 | XMS_ITS | Clinical Summary ---
Author Organization [facility] Address [address] [place] [address] Phone Care Team Providers Care Incident Response Manager Name Role Phone Unavailable Primary Care Provider [...] of Migraines, No family history of Sudden /[place] under age 55, No family history of [...]
--- OUTSIDE RECORDS SUMMARY | 2025-04-23 05:33 | XMS_ITS | Encounter Summary ---
Author Organization [facility] Address [address] [place] [address] Phone Care Team Providers Care Head Stock Operator Name Role Phone Marybeth Mercado MD Primary Care Provider [phone] Encounter Details Date Type Department Care Team (Late st Contact Info) Description 01/20/2017 Conversion Encounter [facility] [place] [address] [place] [address] Social History Tobacco Use Types Packs/Day Years [...] on filedocumented in this encounter Care Teams Head Stock Operator Relationship Specialty Start Date End Date Marybeth Mercado MD [address] [place] [address] PCP - General 01/14/17 09/07/22 documented as of this encounter
--- OUTSIDE RECORDS SUMMARY | 2025-04-23 05:33 | XMS_ITS | Encounter Summary ---
Author Organization [facility] Address [address] [place] [address] Phone Care Team Providers Care Metrologist Name Role Phone Marybeth Mercado MD Primary Care Provider Encounter Details Date Type Department Care Team (Late st Contact Info) Description 02/21/2013 Documentation [facility] [place] Family Medicine [address] [place] [address] Family Medicine, Physician [address] [place], [place] [address] Social History Tobacco Use Types Packs/Day Years [...] on filedocumented in this encounter Care Teams Metrologist Relationship Specialty Start Date End Date Marybeth Mercado MD [address] [place] [address] [place] Rai [address] PCP - General 01/14/17 09/07/22 documented as of this encounter
== END 2025-04-22 14:20 | disposition home or self-care (01) ==
LOC: HO.LNP 14:19
PROVIDERS: Visit Provider Obstetrics & Gynecology
DX: N76.0 Acute vaginitis (principal); N93.9 Abnormal uterine and vaginal bleeding, unspecified; N88.9 Noninflammatory disorder of cervix uteri, unspecified; Z30.42 Encounter for surveillance of injectable contraceptive; Z32.02 Encounter for pregnancy test, result negative; Z20.2 Contact with and (suspected) exposure to infections with a predominantly sexual mode of transmission; Z79.899 Other long term (current) drug therapy
CPT/HCPCS: 81025; 81515; 87491; 87591; 96372; J1050

== ENCOUNTER 2025-04-22 14:19 | Outpatient (AMB) | payer OTHER, SELFPAY ==
[2025-04-22 14:38] VITALS: BMI 25.3
--- NOTE | 2025-04-22 14:38 | MHC.OFFVIS ---
Vital Signs 04/22/25 14:38 Height 4 ft 9 in Weight 117 lb BMI 25.3 Intake Visit Reasons: Colposcopy/Depo/Hysteroscopy consult per Dr Alvarado Human Resources Supervisor: Human Resources Supervisor Present Allergies cat dander (CATS) Allergy (Mild, Verified 04/04/25 15:10) ITCHING Penicillins Adverse Reaction (Mild, Verified 04/04/25 15:10) motion sickness codeine (CODEINE) Adverse Reaction (Unknown, Verified 04/04/25 15:10) NAUSEA Codeine Adverse Reaction (Unknown, Uncoded 11/17/23 14:34) nausea and vomiting Is last menstrual period known: Yes Last menstrual period: 04/03/20 Post menopausal: No Patient : No Do you need a note to return to daycare/school/sports/work: Yes (for surgery on tuesday) HPI Comments Details: Presenting referred from Geovanna Wiggins CNM regarding abnormal uterine bleeding on Depo-Provera. Last Depo-Provera was on 01/29/25, the patient is presenting for Depo-Provera injection, complaining of vaginal discharge with vulvovaginal itching and phone odor The following workup was done: GC/CT negative Pelvic ultrasound showed the following: IMPRESSION: 1. Possible thickening of the endometrium not determined with certainty. 2. Relative fullness of the myometrium within the posterior uterine body with possible mass effect on the endometrium. Could consider a poorly defined submucosal fibroid or an area of adenomyosis. 3. Possible small focus of fluid within the endometrial canal or endometrial cyst. On pelvic exam cervical lesion at 19:00 was identified [facility] Medical History (Updated 04/22/25 @ 14:59 by Karson Alvarado MD) Abnormal uterine bleeding (AUB) Lyme disease MDD (major depressive disorder) Myalgia Fatigue Body aches Kidney stone Adopted Migraine without aura History of abnormal cervical Pap smear No active medical problems Surgical History H/O LEEP History of hernia surgery Family History Mother No problems noted. Father No problems noted. 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 Sexual orientation: Straight/Heterosexual Gender identity: Female Cognitive needs: No Hearing needs: No Vision needs: No Female Reproductive History Menstrual Age of Menarche: 11 Date of last menstrual period: 04/03/20 Total pregnancies: 2 Full term: 2 Review of Systems Const All systems reviewed & are unremarkable except as noted in HPI and below Card Reports as per HPI and Reports no additional complaints Resp Reports as per HPI and Reports no additional complaints GI Reports as per HPI and Reports no additional complaints Reports as per HPI Physical Exam Vital Signs: BMI result Body Mass Index 25.3 Const General: cooperative, healthy appearing and comfortable Resp Effort & Inspection: normal respiratory effort Auscultation: clear to auscultation bilaterally Percussion: percussion normal Cardio Palpation: normal PMI Rate: regular rate Rhythm: regular rhythm Heart sounds: no murmurs and no rubs Peripheral pulses: Peripheral pulses 2+ throughout GI Inspection: Yes normal to inspection Palpation (GI): Soft to palpation, nontender, no guarding, not rigid and No hepatosplenomegaly present Percussion: Yes normal to percussion Auscultation: normal bowel sounds Rectal Exam - Female: deferred General: Yes no CVA tenderness External Female Exam: normal external appearance and normal appearance of the urethra Speculum Exam - Vagina: normal appearance of the vagina, normal palpation, no lesions and no masses Speculum Exam - Cervix: abnormal appearance of the cervix (07:00 dark lesion), normal palpation, no lesions, no masses and nontender Bimanual exam- vagina & uterus: normal bimanual exam, normal palpation, uterine size normal, normal palpation, uterine shape normal, No Cervical tenderness present and non-tender Bimanual Exam- Adnexa, other: normal adnexae Back/Spine/Pelvis Back: no CVA tenderness Results AMB Test Urine AMB Test Urine Negative Last Edit by Yesenia Delgado CMA on 04/22/25 15:01 Assessment & Plan Assessment & Plan (1) Abnormal uterine bleeding (AUB): Comment: On Depo-Provera Abnormal endometrium by ultrasound Code(s): N93.9 - Abnormal uterine and vaginal bleeding, unspecified Category: Medical Plan: Urine test done in the office was negative. Discussed with the patient the finding on ultrasound showing positive endometrial cyst. Recommended to the patient that the next step is an endometrial sampling via hysteroscopy D&C possible polypectomy versus endometrial biopsy to r/o endometrial pathology including hyperplasia or cancer. All the pros and cons risks and benefits of each approach were discussed with the patient, endometrial biopsy being less invasive, office procedure with less sensitivity and inability diagnose a polyp and removal versus hysteroscopy done under anesthesia more invasive more sensitive to endometrial cancer and possibility of diagnosing and endometrial polyp with the possibility of polypectomy. All questions were answered pt verbalized understanding and decided to proceed with hysteroscopy D&C possible polypectomy/myomectomy. Discussed with the patient the procedure , all benefits and risks including but not limited to inability to complete the procedure , insufficient endometrial tissue for a complete evaluation of the endometrial cavity , bleeding, infection, possible need for blood transfusion with all its risk ( HIV,syphilis, Hepatitis, anaphylaxis shock, others..), injury to bladder, rectum, possible need for laparoscopy/laparotomy or hysterectomy. The patient verbalized understanding and signed the consent. Instructions given the patient to stay NPO after midnight the day prior to the procedure and to take only the specific medication (s) discussed the morning of the surgical procedure and to schedule a 2 week postoperative appointment (2) Abnormal cervix finding: Comment: 07:00 cervical lesion Code(s): N88.9 - Noninflammatory disorder of cervix uteri, unspecified Category: Medical Plan: Discussed with the patient the finding on pelvic exam 7 cm cervical lesion, recommended biopsy the patient has agreed. Since the patient has BV symptoms, will treat and schedule cervical biopsy appointment within 2 weeks. (3) Encounter for management and injection of depo-Provera: Code(s): Z30.42 - Encounter for surveillance of injectable contraceptive Category: Medical Plan: Depo-Provera 150 mg IM given to the patient (4) Vulvovaginitis: Comment: BV +VVC Code(s): N76.0 - Acute vaginitis Category: Medical Plan: GC and chlamydia cultures with BV panel taken. Will treat with Flagyl 500 mg p.o. b.i.d. x 7 days, Terazol 0.8% q.h.s. with Lotrisone cream b.i.d. for 5 days. Instructions given to the patient to refrain from sexual activity or to use condoms consistently and correctly during the BV treatment regimen, not to douch, it might increase the risk for relapse, and to call if symptoms persist or recur. Orders: Orders AMB HCG Urine Test Today Z32.02 - Encounter for test, result negative Bacterial Vaginosis Panel Today N76.0 - Acute vaginitis CT NG by PCR Vag/Cerv Today N76.0 - Acute vaginitis Medications: New metronidazole 500 mg PO BID 14 tabs 0RF 7 days terconazole 0.8% 1 appful vaginal BEDTIME 20 grams 0RF 3 days clotrimazole-betamethasone 1-0.05 % 1 appl topical BID 45 grams 0RF 5 days Coding Level of Care Code Est Pt Level 3 (19811) Diagnoses Abnormal uterine bleeding (AUB) N93.9 Abnormal cervix finding N88.9 Encounter for management and injection of depo-Provera Z30.42 Vulvovaginitis N76.0
== END 2025-04-22 15:10 | disposition home or self-care (01) ==
LOC: HO.HWS 14:20
PROVIDERS: Visit Provider Obstetrics & Gynecology
DX: N93.9 Abnormal uterine and vaginal bleeding, unspecified (principal); N88.9 Noninflammatory disorder of cervix uteri, unspecified; Z30.42 Encounter for surveillance of injectable contraceptive; N76.0 Acute vaginitis; Z32.02 Encounter for pregnancy test, result negative
CPT/HCPCS: 99213

== ENCOUNTER 2025-04-30 14:02 | Outpatient (REF) | payer OTHER, SELFPAY | END 2025-04-30 14:03 | disposition home or self-care (01) | LOC: HO.LNP 14:02 | PROVIDERS: Visit Provider Obstetrics & Gynecology | DX: N88.9 Noninflammatory disorder of cervix uteri, unspecified (principal); Z32.02 Encounter for pregnancy test, result negative | CPT/HCPCS: 57500; 81025; 88305; 88307 ==

== ENCOUNTER 2025-04-30 14:02 | Outpatient (AMB) | payer OTHER, SELFPAY ==
[2025-04-30 14:19] VITALS: BP 118/70; BMI 25.3
--- NOTE | 2025-04-30 14:19 | A.OFFVIS_ITS ---
Vital Signs 04/30/25 14:19 Height 4 ft 9 in Weight 117 lb BMI 25.3 BP 118/70 Intake Visit Reasons: cervical lesion biopsy Allergies cat dander (CATS) Allergy (Mild, Verified 04/04/25 15:10) ITCHING Penicillins Adverse Reaction (Mild, Verified 04/04/25 15:10) motion sickness codeine (CODEINE) Adverse Reaction (Unknown, Verified 04/04/25 15:10) NAUSEA Codeine Adverse Reaction (Unknown, Uncoded 11/17/23 14:34) nausea and vomiting HPI Comments Details: Presenting for cervical biopsy 4 07:00 cervical lesion identified on pelvic exam. The patient finished metronidazole treatment for BV and is asymptomatic PFSH Medical History Abnormal uterine bleeding (AUB) Lyme disease MDD (major depressive disorder) Myalgia Fatigue Body aches Kidney stone Adopted Migraine without aura History of abnormal cervical Pap smear No active medical problems Surgical History H/O LEEP History of hernia surgery Family History Mother No problems noted. Father No problems noted. 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 We thoroughly discussed the procedure itself, including its details, alternatives, and all associated risks. This included but not limited to the following complications such as bleeding, infection, and injury to the vagina, bladder, and vessels, as well as the potential need for transfusion with all its associated risks. Subsequently, the patient sign the consent. Procedure: Cervical biopsy at 07:00 lesion A speculum was inserted, and acetic acid was applied. Cervical biopsies were obtained from the 7 o'clock position, Hemostasis was achieved using Monsel solution, and the patient tolerated the procedure well. Post-Procedure Instructions: The patient was advised to promptly contact the office or the after hours answering service or go to the emergency room if experiencing a temperature exceeding 100.4?F, abdominal pain, nausea/vomiting, or bleeding. Additionally, the patient was instructed to abstain from vaginal intercourse and bathtub use. The patient confirmed understanding of these instructions. Discharge Instructions: The patient was instructed to schedule a follow-up appointment in 2 weeks for further evaluation and management. Please note that this note was generated using a voice recognition program, and errors may have occurred during bakery products checker. 63139-Znfofl of Cervix Procedure code (CPT) selection complete Assessment & Plan Assessment & Plan (1) Abnormal cervix finding: Comment: 07:00 cervical lesion Code(s): N88.9 - Noninflammatory disorder of cervix uteri, unspecified Category: Medical Plan: Cervical biopsy done, see procedure note Orders: Orders AMB ELECTRONIC SECURITY TECHNICIAN Biopsy Today N88.9 - Noninflammatory disorder of cervix uteri, unspecified Coding Level of Care Code Procedure Only Diagnoses Abnormal cervix finding N88.9 CPT Codes ELECTRONIC SECURITY TECHNICIAN Biopsy - CPT: 64076-[place] of Cervix ([id number])
--- OUTSIDE RECORDS SUMMARY | 2025-04-30 17:58 | XMS_ITS | Encounter Summary ---
Author Organization [facility] Address [address] [place] [address] Phone Care Team Providers Care Sharepoint Analyst Name Role Phone Marybeth Mercado MD Primary Care Provider [phone] Encounter Details Date Type Department Care Team (Late st Contact Info) Description 01/20/2017 Conversion Encounter [facility] [place] [address] [place] [address] Social History Tobacco Use Types Packs/Day Years [...] on filedocumented in this encounter Care Teams Sharepoint Analyst Relationship Specialty Start Date End Date Marybeth Mercado MD [address] [place] [address] PCP - General 01/14/17 09/07/22 documented as of this encounter
--- OUTSIDE RECORDS SUMMARY | 2025-04-30 17:58 | XMS_ITS | Encounter Summary ---
Author Organization [facility] Address [address] [place] [address] Phone Care Team Providers Care Sign Out Clerk Name Role Phone Marybeth Mercado MD Primary Care Provider [phone] Encounter Details Date Type Department Care Team (Late st Contact Info) Description 02/21/2013 Documentation [facility] [place] Family Medicine [address] [place] [address] Family Medicine, Physician [address] [place], [place] [id number] Social History Tobacco Use Types Packs/Day Years [...] on filedocumented in this encounter Care Teams Sign Out Clerk Relationship Specialty Start Date End Date Marybeth Mercado MD [address] [place] [address] [place] Rai [address] PCP - General 01/14/17 09/07/22 documented as of this encounter
--- OUTSIDE RECORDS SUMMARY | 2025-04-30 17:58 | XMS_ITS | Clinical Summary ---
Author Organization [facility] Address [address] [place] [address] Phone Care Team Providers Care Assembler Knife Name Role Phone Unavailable Primary Care Provider [...] of Migraines, No family history of Sudden /[place] under age 55, No family history of [...]
== END 2025-04-30 15:21 | disposition home or self-care (01) ==
LOC: HO.HWS 14:02
PROVIDERS: Visit Provider Obstetrics & Gynecology
DX: N88.9 Noninflammatory disorder of cervix uteri, unspecified (principal); Z32.02 Encounter for pregnancy test, result negative
CPT/HCPCS: 57500

== ENCOUNTER 2025-05-14 09:27 | Outpatient (AMB) | payer OTHER, SELFPAY ==
--- NOTE | 2025-05-14 09:40 | MHC.OFFVIS ---
Intake Visit Reasons: pre op/ colpo results ok per rafael Jet Wiper Required: No Information Interpreted: non-clinical & clinical Meter Readers Supervisor: Meter Readers Supervisor Present Accompanied by: Self / Same As Patient Allergies cat dander (CATS) Allergy (Mild, Verified 05/14/25 09:52) ITCHING Penicillins Adverse Reaction (Mild, Verified 05/14/25 09:52) motion sickness codeine (CODEINE) Adverse Reaction (Unknown, Verified 05/14/25 09:52) NAUSEA Codeine Adverse Reaction (Unknown, Uncoded 05/14/25 09:52) nausea and vomiting Is last menstrual period known: Yes Last menstrual period: 04/03/20 Post menopausal: No Patient : No Do you need a note to return to daycare/school/sports/work: Yes (for surgery on tuesday) HPI Comments Details: Presenting post colposcopy to discuss hysteroscopy D&C possible polypectomy is for abnormal endometrium by ultrasound. Pathology came back within normal 04/04/2025 pelvic ultrasound showed the following: IMPRESSION: 1. Possible thickening of the endometrium not determined with certainty. 2. Relative fullness of the myometrium within the posterior uterine body with possible mass effect on the endometrium. Could consider a poorly defined submucosal fibroid or an area of adenomyosis. 3. Possible small focus of fluid within the endometrial canal or endometrial cyst. [facility] Medical History Abnormal uterine bleeding (AUB) Lyme disease MDD (major depressive disorder) Myalgia Fatigue Body aches Kidney stone Adopted Migraine without aura History of abnormal cervical Pap smear No active medical problems Surgical History H/O LEEP History of hernia surgery Family History Mother No problems noted. Father No problems noted. 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 Sexual orientation: Straight/Heterosexual Gender identity: Female Cognitive needs: No Hearing needs: No Vision needs: No Female Reproductive History Menstrual Age of Menarche: 11 Date of last menstrual period: 04/03/20 Total pregnancies: 2 Full term: 2 Review of Systems Card Reports as per HPI and Reports no additional complaints Resp Reports as per HPI and Reports no additional complaints GI Reports as per HPI and Reports no additional complaints Reports as per HPI Physical Exam Const General: cooperative, healthy appearing and comfortable Resp Effort & Inspection: normal respiratory effort Auscultation: clear to auscultation bilaterally Percussion: percussion normal Cardio Palpation: normal PMI Rate: regular rate Rhythm: regular rhythm Heart sounds: no murmurs and no rubs Peripheral pulses: Peripheral pulses 2+ throughout GI Inspection: Yes normal to inspection Palpation (GI): Soft to palpation, nontender, no guarding, not rigid and No hepatosplenomegaly present Percussion: Yes normal to percussion Auscultation: normal bowel sounds Rectal Exam - Female: deferred Assessment & Plan Assessment & Plan (1) Abnormal uterine bleeding (AUB): Comment: On Depo-Provera Abnormal endometrium by ultrasound Code(s): N93.9 - Abnormal uterine and vaginal bleeding, unspecified Category: Medical Plan: Discussed with the patient the results of the pathology results and ultrasound findings showing abnormal endometrium, recommended hysteroscopy D&C possible polypectomy/myomectomy Discussed with the patient the procedure , all benefits and risks including but not limited to inability to complete the procedure , insufficient endometrial tissue for a complete evaluation of the endometrial cavity , bleeding, infection, possible need for blood transfusion with all its risk ( HIV,syphilis, Hepatitis, anaphylaxis shock, others..), injury to bladder, rectum, possible need for laparoscopy/laparotomy or hysterectomy. The patient verbalized understanding and signed the consent. Instructions given the patient to stay NPO after midnight the day prior to the procedure and to take only the specific medication (s) discussed the morning of the surgical procedure and to schedule a 2 week postoperative appointment Coding Level of Care Code Est Pt Level 3 (21220) Diagnoses Abnormal uterine bleeding (AUB) N93.9
== END 2025-05-14 10:33 | disposition home or self-care (01) ==
LOC: HO.HWS 09:27
PROVIDERS: Visit Provider Obstetrics & Gynecology
DX: N93.9 Abnormal uterine and vaginal bleeding, unspecified (principal)
CPT/HCPCS: 99213

== ENCOUNTER 2025-05-24 07:31 | Day surgery (SDC) | payer OTHER, SELFPAY ==
--- NOTE | 2025-05-21 09:20 | HO.ANESPROP2 ---
Documented by User: Michelle Cole NP 05/21/25 09:20 HPI - Anesthesia Eval Consult details Narrative: 35yo F for D&C Hysteroscopy,possible myomectomy,possible polypectomy PMFSH Active Problems Active Problems: All Active Problems Vulvovaginitis (Acute) Encounter for management and injection of depo-Provera (Acute) Abnormal uterine bleeding (AUB) (Acute) Lyme disease (Acute) Irregular menses (Acute) MDD (major depressive disorder) (Acute) Myalgia (Acute) Fatigue (Acute) Bone pain (Acute) History of irregular menstrual cycles (Acute) Abnormal cervix finding (Acute) Pelvic pressure in female (Acute) Encounter for well woman exam with routine gynecological exam (Acute) Body aches (Acute) Potential exposure to STD (Acute) Migraine without aura (Acute) Past Medical History Medical History Abnormal uterine bleeding (AUB) Lyme disease MDD (major depressive disorder) Myalgia Fatigue Body aches Kidney stone Adopted Migraine without aura History of abnormal cervical Pap smear Family History Family History Mother No problems noted. Father No problems noted. Surgical History Surgical History H/O LEEP History of hernia surgery Social History Social History Household Members: Children Housing: House Are you a primary skin care consultant to a significant other at home: No Do you presently have visiting nurse or other home services: No Alcohol intake: current Alcohol intake frequency: holidays/special occasions only Patient Tobacco Use Status: Never used Tobacco e-Cigarette/Vaping Use: Never Used Substance Use Frequency: Occasionally Have you been hit, kicked, punched, or otherwise hurt by someone within the past year? 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 Sexual orientation: Straight/Heterosexual Gender identity: Female Cognitive needs: No Hearing needs: No Vision needs: No Meds Allergies Allergy/AdvReac Type Severity Reaction Status Date / Time cat dander (CATS) Allergy Mild ITCHING Verified 05/24/25 07:45 codeine (CODEINE) AdvReac Intermediate NAUSEA Verified 05/24/25 07:45 Penicillins AdvReac Mild motion Verified 05/24/25 07:45 sickness Home Medications ?Medication ?Instructions ?Recorded ?Confirmed ?Last Taken ?Type fexofenadine 180 mg tablet 180 mg PO DAILY 12/20/24 05/21/25 Unknown History (Gregoria Hives) Assessment and Plan Assessment Anesthesia Assessment: Chart Reviewed Documented by User: Brynn Echols MD 05/24/25 08:16 PMFSH Past Medical History Medical History Abnormal uterine bleeding (AUB) Lyme disease MDD (major depressive disorder) Myalgia Fatigue Body aches Kidney stone Adopted Migraine without aura History of abnormal cervical Pap smear Family History Family History Mother No problems noted. Father No problems noted. Family history of problems with anesthesia: No Surgical History Surgical History H/O LEEP History of hernia surgery History of Problems with Anesthesia: No Social History Social History Household Members: Children Housing: House Are you a primary skin care consultant to a significant other at home: No Do you presently have visiting nurse or other home services: No Alcohol intake: current Alcohol intake frequency: holidays/special occasions only Patient Tobacco Use Status: Never used Tobacco e-Cigarette/Vaping Use: Never Used Substance Use Frequency: Occasionally Have you been hit, kicked, punched, or otherwise hurt by someone within the past year? 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 Sexual orientation: Straight/Heterosexual Gender identity: Female Cognitive needs: No Hearing needs: No Vision needs: No Meds Allergies Allergy/AdvReac Type Severity Reaction Status Date / Time cat dander (CATS) Allergy Mild ITCHING Verified 05/24/25 07:45 codeine (CODEINE) AdvReac Intermediate NAUSEA Verified 05/24/25 07:45 Penicillins AdvReac Mild motion Verified 05/24/25 07:45 sickness Home Medications ?Medication ?Instructions ?Recorded ?Confirmed ?Last Taken ?Type fexofenadine 180 mg tablet 180 mg PO DAILY 12/20/24 05/21/25 Unknown History (Gregoria Hives) Exam Airway Mallampati Class: II (missing one tooth left top lateral) TM Dist: >3cm Neck ROM: Full Heart: rrr Lungs: cta Assessment and Plan Assessment Anesthesia Assessment: Anesthesia Plan Discussed Final Anesthetic Review Family History of Problems with Anesthesia: No History of Problems with Anesthesia: No NPO: Yes ASA Class: II Final Preanesthetic Review: No Changes in Pt Med Stat, Meds/Allgs Chart Reviewed and Consent Obtained/Reviewed Patient Risk: Low Procedure Risk: Low Anesthetic Plan Anesthetic Plan: GA (pt no fever, no respiratoty issues, reports congestion that clears in afternoon)
[2025-05-21 15:34] VITALS: BMI 25.3
[2025-05-24] VITALS (13 sets, daily range): BP systolic 101–119; BP diastolic 55–82; PULSE 61–96; RESP 10–18; TEMP 36.6–37; O2SAT 97–100; BMI 25.6; BMI 25.5
[2025-05-24] MEDS: Lactated Ringers 1,000 ML 100 ML IVCONT (07:47)
[2025-05-24 07:57] LABS: UPreg QC Valid YES
--- NOTE | 2025-05-24 08:23 | MHC.SHP ---
Pre-Procedural Eval Section A - 24 Hr Update-Section A only Date of Service: 05/24/25 The patient is an INPATIENT: No Changes since office visit: No Cold of Flu in the past 2 weeks, No New Medical Problems, No Changes in Medication and No Patient answered all questions The patient has been examined within 24 hours of the surgical procedure. The History & Physical has been completed within 30 days and I have reviewed it.: Yes Section B - Complete if H&P > 30 days Chief Complaint: Abnormal uterine and vaginal bleeding, unspecified Allergies: Allergies Allergy/AdvReac Type Severity Reaction Status Date / Time cat dander (CATS) Allergy Mild ITCHING Verified 05/24/25 07:45 codeine (CODEINE) AdvReac Intermediate NAUSEA Verified 05/24/25 07:45 Penicillins AdvReac Mild motion Verified 05/24/25 07:45 sickness Plan Diagnosis/Plan: Unchanged I have reviewed the history and physical and performed a pertinent physical examination on my patient. No changes have occurred unless specified. Time Spent With Patient Time: Total time managing care of this patient today ____ minutes.
--- NOTE | 2025-05-24 09:13 | PM.OP ---
Brief Operative Note Date of Service: 05/24/25 Pre-op diagnosis: Abnormal uterine bleeding, abnormal endometrium by ultrasound Post-op diagnosis: same (Endometrial polyp) Procedure: Hysteroscopy D&C, Polypectomy Surgeon: Karson Alvarado MD Anesthesia: GLMA Was an Audio Visual Project Manager used for this Procedure?: No Estimated blood loss (mL): 0 Pathology: other (Endometrial Scrapping. Polyp) Condition: stable Disposition: PACU
--- NOTE | 2025-05-24 09:14 | P.OP_ITS ---
Operative Note Operative Note Date of Service: 05/24/25 Narrative: Preop Diagnosis: Abnormal uterine bleeding, abnormal endometrium by US Operation: Diagnostic Hysteroscopy, Dilataion & Curettage and polypectomy Post Op Diagnosis: Endometrial Polyp QBL: Minimal Anesthesia: GLMA Surgeon: Karson Alvarado MD Cardiac Catheterization Technologist: None Complication: None Pathology: Endometrial Scrapings, Endometrial polyp Procedure: The patient was put in the dorsal lithotomy position, scrubbed, and draped in the usual manner. A sterile speculum was inserted in the patient's vagina. The anterior lip of the cervix was grasped with a single tooth tenaculum. The cervix was dilated up to 5 mm, then the scope was inserted in the patient's uterus. Inspection revealed endometrial polyp. The Myosure Reach device was used; it was introduced through the operative channel and polypectomy done with no complications. The scope was then taken out from the uterine cavity, sharp curettings was carried on with minimal to moderate amount of tissues retrieved. At the end of the procedure, all instruments were taken out of the patient uterine and vaginal cavity. The single tooth tenaculum was removed and homeostasis was assured using pressure,. The patient tolerated the procedure well and was transferred to the PACU in a stable condition.
== END 2025-05-24 13:40 | disposition home or self-care (01) ==
PROVIDERS: Anesthesiology; PCP Physician Assistant Medical; Visit Provider Obstetrics & Gynecology
PROC: 0UDB8ZZ Extraction of Endometrium, Via Natural or Artificial Opening Endoscopic (ICD-10-PCS; CPT 58558; principal; 2025-05-24 09:30)
DX: N84.0 Polyp of corpus uteri (principal); N71.1 Chronic inflammatory disease of uterus; M79.7 Fibromyalgia; Z79.3 Long term (current) use of hormonal contraceptives
CPT/HCPCS: 58558; 81025; 88305; J1100; J1630; J1885; J2003; J2250; J2405; J2704; J3010

== ENCOUNTER → 2025-05-24 07:31 | Outpatient (BNV) | payer OTHER, SELFPAY | PROVIDERS: PCP Physician Assistant Medical; Visit Provider Obstetrics & Gynecology | DX: N93.9 Abnormal uterine and vaginal bleeding, unspecified (principal); N84.0 Polyp of corpus uteri | CPT/HCPCS: 58558 ==